=== PATIENT | male | born 1960 | race Caucasian/White ===

== ENCOUNTER 2019-10-22 13:13 | Emergency (ER) | payer OTHER, SELFPAY ==
[2019-10-22 13:22] VITALS: BP 130/87; PULSE 88; RESP 20; TEMP 36.8; O2SAT 95
--- NOTE | 2019-10-22 13:22 | ED.URI ---
HPI - URI/Sore Throat General Chief Complaint: Upper Respiratory Infection Stated Complaint: EARACHE/SINUS/THROAT Source: patient and RN notes reviewed Mode of arrival: ambulatory Limitations: no limitations History of Present Illness HPI Narrative: 58-year-old male presents concern for 1 week history of sinus congestion, headache, clogged ears, cough, right ear pain. Reports history of chronic sinusitis, sinus surgeries. MD elicited complaint: nasal congestion Related Data Home Medications Medication Instructions Recorded Confirmed chlorpheniramine-pseudoephed 1 tablet PO Q4-6H PRN 10/22/19 10/22/19 pseudoephedrine HCl [Sudafed 12 120 mg PO Q12H PRN 10/22/19 10/22/19 Hour] Allergies Allergy/AdvReac Type Severity Reaction Status Date / Time amoxicillin Allergy Unknown joint pain Verified 10/22/19 13:31 Review of Systems Review of Systems: Narrative: CONSTITUTIONAL: Reports malaise. Denies chills, sweats, or fever. EYES: Denies visual changes, redness, or discharge. ENT: Reports rhinorrhea, congestion, sinus pain, otalgia and sore throat. CARDIOVASCULAR: Denies chest pain, palpitations, or edema. RESPIRATORY: Reports cough. Denies dyspnea. GASTROINTESTINAL: Denies abdominal pain, nausea, vomiting, diarrhea SKIN: Denies rash or itching. MUSCULOSKELETAL: Denies myalgia. NEUROLOGIC: Reports headache. All systems reviewed & are unremarkable except as noted in HPI and below PMFSH Past Medical History Medical History (Updated 10/22/19 @ 13:46 by Fatmata Chen NP) Acute sinusitis Hyperparathyroidism Non-Hodgkin lymphoma in remission Sleep apnea with use of continuous positive airway pressure (CPAP) Surgical History Surgical History (Updated 09/08/19 @ 14:22 by Peng Castaneda MD) H/O parathyroidectomy H/O shoulder replacement right Hx of sinus surgery Status post left knee surgery Social History Social History Years smoked: 40 Smoking status: Current every day smoker Alcohol intake: current Drinks per week: 5 Substance use: never Substance use type: does not use Gender identity (if verbalized by the patient): Male Comments At time of signature, agree with nursing past medical, surgical, social and family history. There is no relevant family history pertinent to the presenting complaint Exam Narrative: Exam Narrative: GENERAL: Well-appearing, well-nourished, and in no acute distress. HEAD: Normocephalic EYES: PERRLA, conjunctivae clear ENT: Nares clear, turbinates edematous and erythematous, sinus tenderness. Mucous membranes moist. TM pearly yanez with dull light reflex bilaterally; no tragal tenderness. Oropharynx erythematous without lesions. Tonsils not enlarged and without exudate, no drooling, no hoarseness, no trismus, uvula midline. NECK: Supple. No lymphadenopathy CHEST: Clear to auscultation, breath sounds equal. No wheezing, rhonchi, rales, or stridor. No respiratory distress, speaks in full sentences. HEART: Regular rate and rhythm. No murmur heard. Normal peripheral pulses. SKIN: Warm, dry, no rash. NEURO: Alert and oriented x3. PSYCH: Normal mood and affect Course Course Emergency Course: Patient is aware of diagnosis, understands and agrees to treatment plan. Anticipatory guidance given. Patient agrees to follow-up as directed and is aware of reasons to seek care at the emergency department. Portions of this record may have been created with voice recognition software Vital Signs Vital signs: Vital Signs Temperature 98.2 F 10/22/19 13:22 Pulse Rate 88 10/22/19 13:22 Respiratory Rate 20 10/22/19 13:22 Blood Pressure 130/87 10/22/19 13:22 Pulse Oximetry 95 10/22/19 13:22 Temperature 98.2 F 10/22/19 13:22 Pulse Rate 88 10/22/19 13:22 Respiratory Rate 20 10/22/19 13:22 Blood Pressure 130/87 10/22/19 13:22 Pulse Oximetry 95 10/22/19 13:22 Reviewed. Pt has been instructed to foll
== END 2019-10-22 13:49 | disposition home or self-care (01) ==
PROVIDERS: Emergency Provider Nurse Practitioner; PCP Family Medicine
DX: J01.90 Acute sinusitis, unspecified (principal); F17.200 Nicotine dependence, unspecified, uncomplicated; G47.30 Sleep apnea, unspecified; Z85.72 Personal history of non-Hodgkin lymphomas; Z96.611 Presence of right artificial shoulder joint
CPT/HCPCS: 99213; G0463

== ENCOUNTER 2019-11-04 18:08 | Emergency (ER) | payer OTHER, SELFPAY ==
[2019-11-04 18:09] VITALS: BP 151/89; PULSE 107; RESP 18; TEMP 36.2; O2SAT 94
--- NOTE | 2019-11-04 19:28 | ED.EAR ---
HPI - Ear Problem General Chief complaint: Ear Stated complaint: earache Time Seen by Provider: 11/04/19 18:26 Source: patient Mode of arrival: ambulatory Limitations: no limitations History of Present Illness HPI Narrative: Patient presents with chief complaint of right ear pressure and pain that has worsened over the past 2 days. Patient states he has chronic sinus issues and just got over a bout of sinusitis for which she was on doxycycline which ended a week ago. Patient states he has had sinus issues chronically and takes decongestants, Nasacort, antihistamines. Patient states he has had sinus augmentation in the past. Patient states he has not followed up with ear nose throat specialist in many years. Patient denies any fever, chills, nausea, vomiting, diarrhea or any other symptoms Related Data Home Medications Medication Instructions Recorded Confirmed chlorpheniramine-pseudoephed 1 tablet PO Q4-6H PRN 10/22/19 10/22/19 pseudoephedrine HCl [Sudafed 12 120 mg PO Q12H PRN 10/22/19 10/22/19 Hour] Allergies Allergy/AdvReac Type Severity Reaction Status Date / Time amoxicillin Allergy Unknown joint pain Verified 11/04/19 18:22 Review of Systems Review of Systems: Narrative: CONSTITUTIONAL: Denies fever, chills, or sweats. EYES: Denies visual changes, redness, or discharge. ENT: Reports otalgia denies rhinorrhea, congestion, sore throat CARDIOVASCULAR: Denies chest pain, palpitations, or edema. RESPIRATORY: Denies cough or dyspnea. GASTROINTESTINAL: Denies abdominal pain, nausea, vomiting, or diarrhea. GENITOURINARY: Denies dysuria or hematuria. SKIN: Denies rash or itching. MUSCULOSKELETAL: Denies back pain, joint pain, or myalgia. NEUROLOGIC: Denies headache, numbness, dizziness, or weakness. PSYCHIATRIC: Denies anxiety or depression. [facility] Past Medical History Medical History (Updated 11/04/19 @ 19:35 by Se Anglin PA-C) Acute sinusitis Lilly Hussein virus positive mononucleosis syndrome Hyperparathyroidism Non-Hodgkin lymphoma in remission Sleep apnea with use of continuous positive airway pressure (CPAP) Surgical History Surgical History H/O parathyroidectomy H/O shoulder replacement right Hx of sinus surgery Status post left knee surgery Social History Social History Years smoked: 40 Smoking status: Current every day smoker Alcohol intake: current Drinks per week: 5 Substance use: never Substance use type: does not use Gender identity (if verbalized by the patient): Male Exam Narrative: Exam Narrative: GENERAL: Well-appearing, well-nourished, and in no acute distress. HEAD: Normocephalic, atraumatic. EYES: PERRLA and EOMI. ENT: Nares clear, no rhinorrhea or epistaxis. Mucous membranes moist. Oropharynx without tonsillar hypertrophy exudate or other lesions. Right TM bulging with fluid, there is injection and erythema. CHEST: Clear to auscultation. No respiratory distress. No wheezes rales or rhonchi HEART: Regular rate and rhythm. EXTREMITIES: Normal range of motion. No edema. SKIN: Warm, dry, no rash. NEURO: No focal deficits. Alert and oriented x3. PSYCH: Normal mood and affect. Course Vital Signs Vital signs: Vital Signs Temperature 97.2 F L 11/04/19 18:09 Pulse Rate 107 H 11/04/19 18:09 Respiratory Rate 18 11/04/19 18:09 Blood Pressure 151/89 H 11/04/19 18:09 Pulse Oximetry 94 11/04/19 18:09 Temperature 97.2 F L 11/04/19 18:09 Pulse Rate 107 H 11/04/19 18:09 Respiratory Rate 18 11/04/19 18:09 Blood Pressure 151/89 H 11/04/19 18:09 Pulse Oximetry 94 11/04/19 18:09 Medical Decision Making MDM Narrative Medical decision making narrative: Discussed with patient the need to follow-up with ENT specialist for further evaluation into recurrent sinus issues. Patient states that he just finished a course of doxycy
== END 2019-11-04 19:56 | disposition home or self-care (01) ==
PROVIDERS: Emergency Provider Emergency Medicine; PCP Family Medicine
DX: H66.91 Otitis media, unspecified, right ear (principal); E89.2 Postprocedural hypoparathyroidism; Z96.611 Presence of right artificial shoulder joint; Z85.72 Personal history of non-Hodgkin lymphomas; F17.200 Nicotine dependence, unspecified, uncomplicated
CPT/HCPCS: 99283

== ENCOUNTER 2021-07-26 20:34 | Emergency (ER) | payer OTHER, SELFPAY ==
--- NOTE | ~2021-07-26 | CT_ITS ---
EXAMINATION: CT brain wo con DATE: 07/27/2021 00:03 INDICATION: Head injury. TECHNIQUE: Computed tomography (CT) of the head was performed without intravenous contrast. The mA wa s adjusted according to patient size. Iterative reconstruction technique was employed. The dose-lengt h product was 605.33 mGy-cm. COMPARISON: Head CT 05/20/2011 FINDINGS: There are scattered areas of low attenuation in the cerebral white matter, which is within normal limits for the patient's age. There is no intracranial hemorrhage, acute infarction, or abnorm al intracranial mass lesion. The ventricles are normal in size. There is a left frontal scalp hematom a. There is a posterior scalp lipoma. There are changes of ethmoidectomies and uncinectomies. There i s mild mucosal thickening in the paranasal sinuses. The mastoid air cells are normal. The orbits are normal. IMPRESSION: 1. Normal aging brain. Reviewed, dictated and finalized at location A. [employer] IMPRESSION: 1. Normal aging brain.
[2021-07-26 21:16] VITALS: BP 149/98; PULSE 123; RESP 18; TEMP 36.7; O2SAT 93
[2021-07-26 23:54] VITALS: BP 169/93; PULSE 95; RESP 15; O2SAT 98
--- NOTE | 2021-07-26 23:55 | ED.WOUNDLAC ---
HPI - Wound/Laceration General Chief Complaint: Wound/Laceration Stated Complaint: head laceration Time Seen by Provider: 07/26/21 23:47 Source: RN notes reviewed History of Present Illness HPI narrative: Patient presents emergency department from home for head laceration. Patient states prior to arrival the incident of a cabinet when a crockpot fell approximately 2 feet and hit him in the left forehead he states he went down to the ground but did not lose consciousness he states that he has had pain in that area since that time with a laceration present. He is unsure of his last tetanus shot he denies any vision changes numbness or tingling in the extremities neck pain or any other symptoms Related Data Home Medications Medication Instructions Recorded Confirmed chlorpheniramine-pseudoephed 1 tablet PO Q4-6H PRN 10/22/19 10/22/19 pseudoephedrine HCl [Sudafed 12 120 mg PO Q12H PRN 10/22/19 10/22/19 Hour] Allergies Allergy/AdvReac Type Severity Reaction Status Date / Time amoxicillin Allergy Unknown joint pain Verified 07/26/21 23:56 Review of Systems Review of Systems: Gen.: Denies fevers or chills Eyes: Denies eye pain or visual change ENT: See HPI Respiratory: Denies shortness of breath CV: Denies chest pain GI: Denies abdominal pain nausea, emesis Musculoskeletal: Denies neck pain Neuro: Denies loss of consciousness Skin: See HPI Except as documented, all other systems reviewed and negative PMFSH Past Medical History Medical History Acute sinusitis Lilly Hussein virus positive mononucleosis syndrome Hyperparathyroidism Non-Hodgkin lymphoma in remission Sleep apnea with use of continuous positive airway pressure (CPAP) Surgical History Surgical History H/O parathyroidectomy H/O shoulder replacement right Hx of sinus surgery Status post left knee surgery Family History Family History Mother Asthma Social History Social History Years smoked: 40 Smoking status: Current every day smoker Alcohol intake: current Drinks per week: 5 Substance use: never Substance use type: does not use Gender identity (if verbalized by the patient): Male Exam Narrative: APPEARANCE: No acute distress, nontoxic, resting in bed EYES: EOMI, PERRL HEENT: Normocephalic, 2.5 cm over the left superior forehead with mild venous bleeding no foreign body seen, TMs clear bilaterally nares patent oral mucosa moist RESPIRATORY: No respiratory distress MUSCULOSKELETAl: Moves all extremities. No clubbing, cyanosis or edema. NEURO: Awake and alert x 4. Following commands, speech normal, no focal deficits SKIN:: Warm, dry. No rashes lesions or abrasions PSYCHIATRIC: Normal affect/mood, Course Course Emergency Course: Discussed with patient results of workup and diagnosis. Discussed need for follow-up with primary care, proper use of medication, and reasons to return to the emergency department. Patient understands and agrees to current treatment plan Vital Signs Vital signs: Vital Signs Temperature 98.1 F 07/26/21 21:16 Pulse Rate 123 H 07/26/21 21:16 Respiratory Rate 18 07/26/21 21:16 Blood Pressure 149/98 H 07/26/21 21:16 Pulse Oximetry 93 07/26/21 21:16 Temperature 98.1 F 07/26/21 21:16 Pulse Rate 95 07/26/21 23:54 Respiratory Rate 15 07/26/21 23:54 Blood Pressure 169/93 H 07/26/21 23:54 Pulse Oximetry 98 07/26/21 23:54 Procedures Laceration Laceration 1: ====== Skin Level ====== ====== Subcutaneous Layer ====== ====== Muscle Layer ====== ====== Tendon Layer ====== Dressin.5 cm forehead laceration: Verbal consent was obtained prior to the procedure. The wound was cleaned with Betadine and irrigated with co
[2021-07-27] MEDS: TETANUS,DIPHTHERIA,AC PERTUSSIS ADULT (0.5 ML) BOOSTRIX IM (00:44)
[2021-07-27 01:09] VITALS: BP 152/74; PULSE 65; RESP 15; O2SAT 99
== END 2021-07-27 01:10 | disposition home or self-care (01) ==
PROVIDERS: Emergency Provider Emergency Medicine; PCP Family Medicine
DX: S01.81XA Laceration without foreign body of other part of head, initial encounter (principal); Z23 Encounter for immunization; G47.30 Sleep apnea, unspecified; Z85.72 Personal history of non-Hodgkin lymphomas; E89.2 Postprocedural hypoparathyroidism; F17.210 Nicotine dependence, cigarettes, uncomplicated; Z96.611 Presence of right artificial shoulder joint; W20.8XXA Other cause of strike by thrown, projected or falling object, initial encounter
CPT/HCPCS: 12011; 70450; 90471; 90715; 99284

== ENCOUNTER 2023-01-23 08:45 | Emergency (ER) | payer OTHER, SELFPAY ==
[2023-01-23 08:50] VITALS: BP 137/99; PULSE 96; RESP 18; TEMP 36.2; O2SAT 99
--- NOTE | 2023-01-23 10:11 | ED.ALLEREA ---
HPI - Allergic Reaction General Chief complaint: Allergic Reaction Stated complaint: rash Time Seen by Provider: 01/23/23 10:03 History of Present Illness HPI narrative: 62-year-old male reports for evaluation of a diffuse rash to his legs, arms, chest and back that started yesterday. Patient states the rash is itchy and reports taking multiple doses of Benadryl, last dose was 50 mg 2 hours ago. States he started taking clindamycin 7 days ago for a sinus infection. He denies other new medications, lotions, detergents or other new exposures. Denies fever, oral lesions, nausea or vomiting. Denies difficulty breathing, mouth or lip swelling, chest pain or shortness of breath Related Data Allergies Allergy/AdvReac Type Severity Reaction Status Date / Time amoxicillin Allergy Unknown joint pain Verified 01/16/23 14:06 clindamycin Allergy Rash Verified 01/23/23 10:44 Review of Systems Review of Systems: CONSTITUTIONAL: Denies fever, chills EYES: Denies visual changes, redness, or discharge. ENT: Denies rhinorrhea, congestion, sore throat, or otalgia. CARDIOVASCULAR: Denies chest pain, palpitations, or edema. RESPIRATORY: Denies cough or dyspnea. GASTROINTESTINAL: Denies abdominal pain, nausea, vomiting, or diarrhea. GENITOURINARY: Denies dysuria or hematuria. SKIN: See HPI MUSCULOSKELETAL: Denies back pain, joint pain, or myalgia. NEUROLOGIC: Denies headache, numbness, dizziness, or weakness. PSYCHIATRIC: Denies anxiety or depression. [facility] Past Medical History Medical History Acute sinusitis Lilly Hussein virus positive mononucleosis syndrome Hyperparathyroidism Non-Hodgkin lymphoma in remission Sleep apnea with use of continuous positive airway pressure (CPAP) Wellness examination Surgical History Surgical History H/O parathyroidectomy H/O shoulder replacement right Hx of sinus surgery Status post left knee surgery Family History Family History Mother Asthma Social History Social History Years smoked: 40 Smoking status: Current every day smoker Alcohol intake: current Drinks per week: 5 Substance use: never Substance use type: does not use Gender identity (if verbalized by the patient): Male Exam Narrative: GENERAL: Well-appearing, in no acute distress. HEAD: Normocephalic ENT: No lip, mouth or throat swelling. No difficulty breathing. No drooling. NECK: Supple. CHEST: No respiratory distress. Clear to auscultation, no adventitious breath sounds. HEART: Regular rate and rhythm. No murmur heard. Normal peripheral pulses. ABDOMEN: Soft, nontender, normal active bowel sounds. EXTREMITIES: Normal range of motion. No edema. SKIN: Diffuse maculopapular rash to bilateral legs, abdomen, back and upper extremities. No drainage, bullae or vesicles, signs of infection. Negative Nikolsky's. No mucosal lesions. NEURO: No focal deficits. Alert and oriented x3. PSYCH: Normal mood and affect. Course Vital Signs Vital signs: Vital Signs Temperature 97.2 F L 01/23/23 08:50 Pulse Rate 96 01/23/23 08:50 Respiratory Rate 18 01/23/23 08:50 Blood Pressure 137/99 H 01/23/23 08:50 Pulse Oximetry 99 01/23/23 08:50 Oxygen Delivery Room Air 01/23/23 08:50 Temperature 97.2 F L 01/23/23 08:50 Pulse Rate 96 01/23/23 08:50 Respiratory Rate 18 01/23/23 08:50 Blood Pressure 137/99 H 01/23/23 08:50 Pulse Oximetry 99 01/23/23 08:50 Oxygen Delivery Room Air 01/23/23 08:50 MDM - Allergic Reaction MDM Narrative Medical decision making narrative: 62-year-old male reports for evaluation of a diffuse rash to his legs, arms, chest and back that started yesterday. Patient is currently taking clindamycin, started 7 days ago for sinusitis.
[2023-01-23] MEDS: FAMOTIDINE 20 MG TABLET PO (10:41)
== END 2023-01-23 10:45 | disposition home or self-care (01) ==
PROVIDERS: Emergency Provider Physician Assistant; PCP Family Medicine
DX: L27.0 Generalized skin eruption due to drugs and medicaments taken internally (principal); T36.8X5A Adverse effect of other systemic antibiotics, initial encounter; E89.2 Postprocedural hypoparathyroidism; G47.30 Sleep apnea, unspecified; Z96.611 Presence of right artificial shoulder joint; Z85.72 Personal history of non-Hodgkin lymphomas; F17.200 Nicotine dependence, unspecified, uncomplicated
CPT/HCPCS: 96372; 99283; A9270; J1100

== ENCOUNTER 2023-08-20 10:36 | Outpatient (CLI) | payer OTHER, SELFPAY ==
--- NOTE | ~2023-08-20 | CT_ITS ---
CT Scan of the Chest without Contrast: Clinical Indication: Lung cancer screening, current smoker Technique: Contiguous sections were acquired throughout the chest without intravenous contrast. Dose reduction technique was used on this scan by utilizing automated exposure control and iterative recon struction technique. The dose-length product (DLP) was 227.70 mGy-cm. Findings: There is a homogeneous anterior mediastinal/anterior left upper chest wall mass, at the superior left mediastinal region, measuring up to approximately 7.9 x 4.0 x 3.5 cm in extent (axial image 29 for gris jones, coronal image 48 for example). This is primarily just deep to the anterior left second rib There is no evidence of pleural or pericardial effusion. There is patchy groundglass opacity in the left lower lobe, suggestive of infectious process. No disc rete pulmonary nodule clearly identified. Images through the upper abdomen reveal no abnormalities. Impression: Lung RADS 4B: Highly suspicious. 7.9 x 4.0 x 3.5 cm homogeneous left upper chest wall/anterior medias tinal mass. Tissue sampling is recommended to establish a histologic diagnosis. Patchy groundglass opacity left lower lobe is most compatible with infectious process. Consider short -term follow-up CT to assure resolution. Findings reported to [facility];s staff at the time of this reading. Reviewed, dictated and finalized at location M. [employer] Impression: Lung RADS 4B: Highly suspicious. 7.9 x 4.0 x 3.5 cm homogeneous left upper ches t wall/anterior mediastinal mass. Tissue sampling is recommended to establish a histologic diagnosis. Patchy groundglass opacity left lower lobe is most compatible with infectious p rocess. Consider short-term follow-up CT to assure resolution. Findings reported to [facility] staff at the time of this reading.
== END 2023-08-20 10:37 | disposition home or self-care (01) ==
PROVIDERS: PCP Family Medicine; Visit Provider Physician Assistant
DX: Z12.2 Encounter for screening for malignant neoplasm of respiratory organs (principal); F17.210 Nicotine dependence, cigarettes, uncomplicated
CPT/HCPCS: 71271

== ENCOUNTER 2023-09-01 01:01 | Day surgery (SDC) | payer OTHER, SELFPAY ==
[2023-08-26 13:12] VITALS: BMI 28.4
--- NOTE | 2023-09-01 08:12 | P.PNAN_ITS ---
Anes - Initial Pre Proc Eval Procedure: Operation Date: 09/01/23 10:00 Proposed Procedures p Screening Colonoscopy - Masoud Reynoso MD Date/Time: 09/01/23 08:12 Surgeon: Masoud Reynoso MD Pre Op Diagnosis: neoplasm screening Patient Data Age: 62 Gender: M Height: 1.78 m Weight: 90 kg Allergies Allergy/AdvReac Type Severity Reaction Status Date / Time amoxicillin Allergy Unknown joint pain Verified 09/01/23 08:44 clindamycin Allergy Rash Verified 09/01/23 08:44 Home Medications Medication Instructions Recorded Confirmed Type amlodipine 5 mg tablet 5 mg PO DAILY #90 tabs 03/28/23 09/01/23 Rx Patient hx anesthesia problems: none Family hx anesthesia problems: none Results Review: All pre-operative results and documents have been reviewed as part of the pre- operative evaluation. [facility] Past Medical History Medical History (Updated 09/01/23 @ 08:13 by Jed Aguirre DO) Acute sinusitis Lilly Hussein virus positive mononucleosis syndrome HTN (hypertension) Hyperparathyroidism Non-Hodgkin lymphoma in remission Sleep apnea with use of continuous positive airway pressure (CPAP) Wellness examination Surgical History Surgical History H/O parathyroidectomy H/O shoulder replacement right Hx of sinus surgery Status post left knee surgery Family History Family History Mother Asthma Social History Social History Smoking packs per day: 0.5 Smoking cigarettes per day: 10.0 Years smoked: 45 Smoking pack-years: 22.50 Smoking status: Current every day smoker Tobacco type: cigarettes Alcohol intake: current Drinks per week: 3 Alcohol use details: OCC, BEER/RUM Substance use: never Substance use type: does not use Living arrangements: with family Gender identity (if verbalized by the patient): Male Spiritual care concerns: No Anes - Eval Final PreProcedure Day of Procedure 09/01/23 08:12 Patient weight: overweight Heart: regular rate and rhythm Lungs: clear to auscultation Airway: Mallampati scale class II Neurological: alert and oriented Last oral intake: >/= 8 hours ASA classification: III Emergent: no Anesthetic plan: proceed Anesthesia type and monitoring: general GIVS and standard monitoring Results Review: All pre-operative results and documents have been reviewed as part of the pre- operative evaluation. Informed Consent: The patient's anesthetic plan and its attendant risks and benefits were discussed with the patient/family/POA. Questions were solicited and answers provided to the satisfaction of the patient/family/POA.
[2023-09-01 08:45] VITALS: BP 131/82; PULSE 77; RESP 16; TEMP 36.2; O2SAT 96; BMI 29.7
[2023-09-01] MEDS: LACTATED RINGERS 1,000 ML 150 ML IV CONT (08:55)
--- NOTE | 2023-09-01 09:25 | PM.HPGS ---
History of Present Illness History of Present Illness Consent: Risks, benefits, and alternatives have been discussed and questions answered. Patient agrees to proceed with procedure. Chief complaint: neoplasm screening Narrative: Carlton Hernandez is a 62 year old male here for screening colonoscopy, last one 10 years ago Review of Systems Constitutional: Constitutional: Denies headache(s) and Denies weakness Eyes: Eyes: Denies blurry vision ENT: Reports Normal hearing present, Denies headache(s) and Denies neck pain Cardiovascular: Cardiovascular: Denies chest pain and Denies dyspnea Respiratory: Respiratory: Denies dyspnea Gastrointestinal: Gastrointestinal: Reports no additional gastrointestinal complaints Genitourinary: Genitourinary: Denies dysuria Musculoskeletal: Musculoskeletal: Denies neck pain Integumentary/Breasts: Skin/Breast: Denies dry skin Neurologic: Reports Normal hearing present, Denies headache(s) and Denies weakness Psychiatric: Psychiatric: Denies anxiety Endocrine: Endocrine: Denies change in body appearance Hematologic/Lymphatic: Hematologic/Lymphatic: Denies easy bleeding Allergic/Immunologic: Allergic/Immunologic: Denies urticaria PMFSH Past Medical History Medical History (Updated 09/01/23 @ 09:25 by Masoud Reynoso MD) Acute sinusitis Colon cancer screening Lilly Hussein virus positive mononucleosis syndrome HTN (hypertension) Hyperparathyroidism Non-Hodgkin lymphoma in remission Sleep apnea with use of continuous positive airway pressure (CPAP) Wellness examination Surgical History Surgical History H/O parathyroidectomy H/O shoulder replacement right Hx of sinus surgery Status post left knee surgery Family History Family History Mother Asthma Social History Social History Smoking packs per day: 0.5 Smoking cigarettes per day: 10.0 Years smoked: 45 Smoking pack-years: 22.50 Smoking status: Current every day smoker Tobacco type: cigarettes Alcohol intake: current Drinks per week: 3 Alcohol use details: OCC, BEER/RUM Substance use: never Substance use type: does not use Living arrangements: with family Gender identity (if verbalized by the patient): Male Spiritual care concerns: No Meds Home Medications and Allergies Home Medications Medication Instructions Recorded Confirmed Type amlodipine 5 mg tablet 5 mg PO DAILY #90 tabs 03/28/23 09/01/23 Rx Allergies Allergy/AdvReac Type Severity Reaction Status Date / Time amoxicillin Allergy Unknown joint pain Verified 09/01/23 08:44 clindamycin Allergy Rash Verified 09/01/23 08:44 Vital Signs Vital Signs - 24 hr 09/01/23 08:45 Temperature 97.1 F L Pulse Rate 77 Respiratory Rate 16 Blood Pressure 131/82 Pulse Oximetry 96 Oxygen Delivery Room Air Exam Const: General: comfortable and no acute distress HENMT: Face/Nose/Sinus: Normal nares present Eyes: General: appearance normal, both eyes and all related structures Neck: Neck: no JVD Resp: Auscultation: clear to auscultation bilaterally Cardio: Rate: regular rate Rhythm: regular rhythm GI: Inspection: non-distended GI Palp: Yes Soft to palpation Skin: General skin exam: normal color Neuro: General: gait normal Speech: normal speech Extrem: General: normal to inspection Psych: Mental Status: mental status grossly normal Assessment and Plan Assessment and plan (1) Colon cancer screening: Code(s): Z12.11 - Encounter for screening for malignant neoplasm of colon Status: Acute Assessment and Plan: colonoscopy
[2023-09-01 09:45] VITALS: BP 134/74; PULSE 63; RESP 27; O2SAT 96
[2023-09-01 09:55] VITALS: BP 116/81; PULSE 71; RESP 24; O2SAT 99
[2023-09-01 10:05] VITALS: BP 138/90; PULSE 65; RESP 27; O2SAT 97
== END 2023-09-01 10:11 | disposition home or self-care (01) ==
PROVIDERS: PCP Family Medicine; Visit Provider Internal Medicine Gastroenterology
PROC: 0DJD8ZZ Inspection of Lower Intestinal Tract, Via Natural or Artificial Opening Endoscopic (ICD-10-PCS; CPT 45378; principal; 2023-09-01 10:00)
DX: Z12.11 Encounter for screening for malignant neoplasm of colon (principal); D12.5 Benign neoplasm of sigmoid colon; D12.4 Benign neoplasm of descending colon; K64.8 Other hemorrhoids; K57.30 Diverticulosis of large intestine without perforation or abscess without bleeding; I10 Essential (primary) hypertension; E21.3 Hyperparathyroidism, unspecified; F17.210 Nicotine dependence, cigarettes, uncomplicated; G47.30 Sleep apnea, unspecified; Z99.89 Dependence on other enabling machines and devices; Z98.890 Other specified postprocedural states; Z85.72 Personal history of non-Hodgkin lymphomas
CPT/HCPCS: 45380; 45385; 88305; J2704; J7120

== ENCOUNTER 2023-09-12 06:17 | Outpatient (CLI) | payer OTHER, SELFPAY ==
[2023-09-09 15:28] VITALS: BMI 30.1
--- NOTE | 2023-09-09 15:29 | PC.NURSE ---
Pre Radiology instructions Report to the [facility] on date 09/12/23 at time 0930 for procedure Time: 1130. YOU MAY BE MONITORED AT HOSPITAL FOR UP TO 4 HOURS AFTER YOUR PROCEDURE. A visitor will be allowed to accompany the patient into the hospital. You and your visitor will be asked to self-screen and do not enter if you have any COVID symptoms. A mask is OPTIONAL within the hospital. Patients are to have no food or drink 6 hours prior to procedure time Driving will be restricted after the procedure, you must have a person to drive you home. Labs will be drawn in preop area and once reviewed, you will be taken to radiology area for procedure. When the procedure is completed, you will be taken to outpatient where you will be monitored for several hours. You may have one visitor in this area. Other than holding anti-coagulants, patient may take other medication(s) as scheduled. Prior to your appointment date patients are instructed to hold anti-coagulants after discussing with ordering provider to stop. If unable to discontinue anti-coagulants please notify radiologist. ? No aspirin or warfarin (Coumadin) for 7 days prior to the procedure. ? No clopidogrel (Plavix), ticagrelor (Brilinta), prasugrel (Effient) or dabigatran (Pradaxa) for 5 days prior to the procedure. ? No rivaroxaban (Xarelto), apixaban (Eliquis), dipyridamole (Aggrenox or Persantine) or cilostazol (Pletal) for 2 days prior to the procedure. Medications to discontinue per physician: N/A Date to take last dose: N/A Please leave all valuables, including medications, at home the day of procedure. The hospital will not accept responsibility for valuables. Wear comfortable, loose fitting clothing.? Follow any additional instructions given to you from ordering provider. Telephone instructions given to DERECK PAULINO and asked if any additional questions and then verbalized understanding. Patient advised to call scheduling provider office or registration scheduling [phone] if any additional questions.
[2023-09-12] VITALS (9 sets, daily range): BP systolic 131–145; BP diastolic 82–91; PULSE 60–82; RESP 12–18; TEMP 36.7; O2SAT 95–98
--- NOTE | ~2023-09-12 | XR_ITS ---
XR chest 1V portable 09/12/2023 12:46 Indication: Post image guided biopsy. Procedure: AP upright view of the chest Comparison: 09/12/2023 Findings: No pneumothorax identified post procedure. Persistent masslike density left apex, suspiciou s for neoplasm. Right lung clear. Heart size normal. Impression: 1: No pneumothorax identified. Reviewed, dictated and finalized at location B. OR CLINICAL STUDY MANAGER Impression: 1: No pneumothorax identified.
--- NOTE | ~2023-09-12 | XR_ITS ---
XR chest 1V 09/12/2023 11:46 Indication: Postleft lung biopsy Procedure: AP view of the chest Comparison: CT dated 08/20/2023 Findings: There is a masslike density left apex, suspicious for neoplasm. Heart size normal. No pneum othorax identified. Right lung clear. No pleural effusion or pneumothorax. Impression: 1: No pneumothorax identified post procedure. 2: Masslike density left apex, suspicious for neoplasm. Reviewed, dictated and finalized at location B. OMER SUPPLY COORDINATOR Impression: 1: No pneumothorax identified post procedure. 2: Masslike density left apex, suspicious for neoplasm.
--- NOTE | ~2023-09-12 | CT_ITS ---
EXAMINATION: CT biopsy lung w/imaging DATE: 09/12/2023 11:46 INDICATION: Mass at the left upper lobe/anterior mediastinum. TECHNIQUE: The procedure including the risks and benefits was discussed with the patient. Risks discu ssed included infection, approximately 1/20 risk of symptomatic hemorrhage beyond mild hemoptysis, ap proximately 1/3 risk of pneumothorax, and approximately 1/10 risk of pneumothorax severe enough to wa rrant chest tube placement. The patient understood the risks and agreed to proceed. The patient was p laced supine. The skin overlying the parasternal left upper chest was prepped and draped in sterile fashion. Anesthetic was administered with 1% lidocaine subcutaneously. A 19 gauge outer needle was advanced under CT guidance to the lesion of interest. A 20 gauge core biopsy needle was then used to obtain 5 core biopsy specimens. The needle was removed and the entry site was cleaned and dressed. T here were no immediate complications. The dose-length product was 117.64 mGy-cm. FINDINGS: CT images demonstrate the outer needle tip adjacent to a 7 x 5 cm mass at the junction of t he left upper lobe and anterior mediastinum and chest wall. IMPRESSION: 1. Successful CT-guided biopsy of a 7 x 5 cm mass at the junction of the left upper lobe, anterior me diastinum and chest wall. Reviewed, dictated and finalized at location A. LOPER TRADING SYSTEMS IMPRESSION: 1. Successful CT-guided biopsy of a 7 x 5 cm mass at the junction of the left u pper lobe, anterior mediastinum and chest wall.
--- NOTE | ~2023-09-12 | XR_ITS ---
EXAMINATION: XR chest 1V portable DATE: 09/12/2023 14:46 INDICATION: Status post percutaneous left lung biopsy TECHNIQUE: frontal view of the chest was obtained. COMPARISON: Chest radiograph dated 09/12/2023 FINDINGS: Again seen is an airspace opacity medial left upper lung zone corresponding to the biopsied mediastin al/paramediastinal mass of concern. No other airspace opacities, pulmonary edema, pleural effusion or pneumothorax. The cardiomediastinal silhouette is normal. Partially visualized right total shoulder arthroplasty. IMPRESSION: 1. No pneumothorax or other acute cardiopulmonary disease post percutaneous biopsy of a left external /paramediastinal mass. Reviewed, dictated and finalized at location A. R TREATMENT PLANT OPERATOR IMPRESSION: 1. No pneumothorax or other acute cardiopulmonary disease post percutaneous bio psy of a left external/paramediastinal mass.
[2023-09-12 10:40] LABS: Mean Platelet Volume 8.8 fl (7.4-10.4); Platelet Count Result 237 k/mm3 (150-375)
[2023-09-12 10:50] LABS: Prothrombin Time 13.2 Seconds (11.1-14.7)
--- NOTE | 2023-09-12 13:08 | SUR.PHASEII ---
1245 PORTABLE CXR DONE.
--- NOTE | 2023-09-12 14:52 | SUR.PHASEII ---
1445 PORTABLE CXR DONE.
--- NOTE | 2023-09-12 15:29 | SUR.PHASEII ---
DR. ARMENDARIZ HERE TO SEE PT.
== END 2023-09-12 15:31 | disposition home or self-care (01) ==
PROVIDERS: PCP Family Medicine; Referring Provider Physician Assistant; Visit Provider Radiology Diagnostic Radiology
PROC: BB24ZZZ Computerized Tomography (CT Scan) of Bilateral Lungs (ICD-10-PCS; CPT 32408; principal; 2023-09-12 11:30)
DX: Z01.818 Encounter for other preprocedural examination (principal); R91.8 Other nonspecific abnormal finding of lung field
CPT/HCPCS: 32408; 36415; 71045; 85049; 85610; 88305; 88341; 88342

== ENCOUNTER 2024-08-04 09:50 | Outpatient (CLI) | payer OTHER, SELFPAY ==
[2024-08-04 11:19] LABS: Influenza A QL RT-PCR Negative (Negative); Influenza B QL RT-PCR Negative (Negative); RSV RNA, RT-PCR Negative (Negative); SARS-CoV-2 RNA PCR Negative (Negative)
== END 2024-08-04 09:51 | disposition home or self-care (01) ==
LOC: ANHLAB 09:52
PROVIDERS: PCP Family Medicine; Visit Provider Physician Assistant Medical
DX: R05.9 Cough, unspecified (principal); Z20.822 Contact with and (suspected) exposure to COVID-19
CPT/HCPCS: 87637

== ENCOUNTER 2024-08-05 18:42 | Inpatient (IN) | payer OTHER, SELFPAY ==
[2024-08-05] VITALS (11 sets, daily range): BP systolic 134–143; BP diastolic 81–85; PULSE 75–93; RESP 16–25; TEMP 36.6–37.1; O2SAT 91–95
--- NOTE | ~2024-08-05 | XR_ITS ---
EXAMINATION: XR chest 1V portable DATE: 08/05/2024 20:45 INDICATION: Shortness of breath. Cough. Fever. TECHNIQUE: A single frontal view of the chest was obtained on 2 radiographs. COMPARISON: Chest single view 09/12/2023, chest CT 08/20/2023 FINDINGS: There is no pneumonia, pleural effusion, or pneumothorax. The heart size is normal. There i s a right shoulder arthroplasty. IMPRESSION: 1. No acute cardiopulmonary disease. Reviewed, dictated and finalized at location A. ALLERGY IMMUNOLOGY
--- NOTE | ~2024-08-05 | CT_ITS ---
EXAMINATION:CT diagnostic chest wo con DATE: 08/05/2024 21:29 INDICATION: Hypoxia. TECHNIQUE: Computed tomography (CT) of the chest was performed without intravenous contrast. Automate d exposure control and iterative reconstruction technique were employed. The dose-length product (DLP ) was 359.14 mGy-cm. COMPARISON: Chest CT 08/20/2023 FINDINGS: There is mild atelectasis in left lower lobe. There is mild bronchiectasis in the inferior lungs. There are tree-in-bud opacities in left upper lobe and left lower lobe. No pleural effusion. T here is a 6.6 x 2.8 cm mass in the anterior mediastinum on the left, decreased from 9.5 x 4.0 cm on . The heart size is normal. No pericardial effusion. There is mild bilateral gynecomastia. The re is diffuse hepatic steatosis. There is a total right shoulder arthroplasty. There is mild thoracic spondylosis. IMPRESSION: 1. Tree-in-bud opacities in left upper lobe and left lower lobe, consistent with mild pneumonia. 2. Anterior mediastinal mass on the left with improvement from 08/20/2023, consistent with lymphoma. Reviewed, dictated and finalized at location A. CETYLENE TORCH OPERATOR IMPRESSION: 1. Tree-in-bud opacities in left upper lobe and left lower lobe, consistent wit h mild pneumonia. 2. Anterior mediastinal mass on the left with improvement from 08/20/2023, consis tent with lymphoma.
--- NOTE | 2024-08-05 19:39 | ECG_ITS ---
Test Date: 2024-08-05 19:49:51 Measurements Intervals [place] Rate: 77 P: 26 RI: 204 QRS: -37 QRSD: 104 T: 41 QT: 393 QTc: 446 Interpretive Statements SINUS RHYTHM LEFT AXIS DEVIATION [QRS AXIS < -30] No previous ECG available for comparison Electronically Signed On 08-06-2024 12:09:26 BORDEREAU CLERK by Amaya Dong M.D.
[2024-08-05 20:10] LABS: Basophils Absolute Auto 0.1 K/mm3 (0.0-0.1); Basophils Percent Auto 1.3 % (0.2-1.2); Eosinophils Absolute Auto 0.2 K/mm3 (0-0.3); Eosinophils Percent Auto 2.8 % (0-4.4); Hematocrit 42.6 % (42.0-52.0); Hemoglobin 15.3 g/dL (14.0-18.0); Immature Granulocyte Absolute 0.02 K/mm3 (0.00-0.031); Immature Granulocyte Percent A 0.4 % (0-0.5); Lymphocytes Absolute Auto 0.58 K/mm3 (0.9-3.2); Lymphocytes Percent Auto 10.8 % (18.3-44.2); Mean Corpuscular HGB Conc 35.9 g/dl (32-36); Mean Corpuscular Volume 94.7 fl (80-100); Mean Platelet Volume 8.7 fl (7.4-10.4); Monocytes Absolute Auto 0.8 K/mm3 (0.1-0.6); Neutrophils Absolute Auto 3.8 K/mm3 (1.3-6.7); Neutrophils Percent Auto 70.7 % (45.5-73.1); Platelet Count Result 187 k/mm3 (150-375); Red Cell Distribution Width 12.8 % (11.5-14.5); White Blood Count 5.4 K/mm3 (4.5-10.0)
[2024-08-05] MEDS: IPRATROPIUM 0.5 MG/ALBUTEROL SULFATE 2.5 MG AMPUL.NEB 3 ML 12 ML INHALATION (20:17)
[2024-08-05 20:20] LABS: Alanine Aminotransferase 42 U/L (6-50); Albumin Level 4.5 g/dL (3.5-5.1); Alkaline Phosphatase 61 U/L (38-126); Anion Gap 7 mmol/L (4-12); Aspartate Amino Transferase 32 U/L (17-59); Bilirubin,Total 0.7 mg/dL (0.2-1.3); Blood Urea Nitrogen 9 mg/dL (9-20); Calcium 8.9 mg/dL (8.4-10.2); Carbon Dioxide 25 mmol/L (22-30); Chloride 104 mmol/L (98-107); Estimated CRCL calculation 110 ml/min; Estimated Glomerular Filt Rate > 60; Glucose 94 mg/dL (65-110); Potassium 3.5 mmol/L (3.4-5.0); Sodium 136 mmol/L (137-145)
--- NOTE | 2024-08-05 20:29 | ED.GENADULT ---
HPI - General Adult General Chief complaint: Shortness of Breath/Dyspnea Stated complaint: cough Time Seen by Provider: 08/05/24 19:51 History of Present Illness HPI narrative: This is a 63 year presenting ED with chief shortness of breath. Patient has had a cough for the last 3 days. He saw his care physician who chest in for COVID RSV and flu which were all negative. He was prescribed Tessalon Perles and given return precautions worsening condition. His condition has continued to worsen. He is now having significant coughing fits. He is denying fevers chills nausea vomiting or diarrhea. patient coughed so hard he thought that he was going to faint. Related Data Allergies Allergy/AdvReac Type Severity Reaction Status Date / Time amoxicillin Allergy Unknown joint pain Verified 08/05/24 21:55 clindamycin Allergy Rash Verified 08/05/24 21:55 cockroach Allergy Unknown Verified 08/05/24 21:55 PMFSH Past Medical History Medical History Colon cancer screening Wellness examination HTN (hypertension) Lilly Hussein virus positive mononucleosis syndrome Acute sinusitis Sleep apnea with use of continuous positive airway pressure (CPAP) Hyperparathyroidism Non-Hodgkin lymphoma in remission Surgical History Surgical History Status post left knee surgery H/O shoulder replacement right H/O parathyroidectomy Hx of sinus surgery Family History Family History Mother Asthma Social History Social History Social History: Smoking packs per day: 0.25 Smoking cigarettes per day: 5.0 Years smoked: 45 Smoking pack-years: 11.25 Smoking status: Current every day smoker Tobacco type: cigarettes Alcohol intake: current Drinks per week: 5 Alcohol use details: OCC, BEER/RUM Substance use: never Substance use type: does not use Do You Feel Safe in your Home?: Yes Lack of Transportation: No Lack of Food: Never True Current Housing: I Have Housing Concerned About Future Housing: No Difficulty Paying Gas/Electric Bills: No Difficulty Paying for Meds: No Currently Unemployed: YES Education: Don't Know Difficulty w/ Childcare or Family Care: No Living arrangements: with family Occupation/Education: retired Gender identity (if verbalized by the patient): Male Sexual Orientation (if Verbalized by the Patient): Straight or Heterosexual Spiritual care concerns: No Exam Narrative: APPEARANCE: No apparent distress. Head: atraumatic. EYES: EOMI, NOSE: Atraumatic NECK: Trachea midline RESPIRATORY: Tachypneic, hypoxic on room air, scattered wheezing CARDIOVASCULAR: RRR, no peripheral edema ABDOMINAL: Non-distended soft nontender MUSCULOSKELETAl: No obvious deformities NEURO: Alert. Moving 4/4 extremities SKIN:: Warm, dry. Normal color PSYCHIATRIC: Normal affect Course Vital Signs Vital signs: Vital Signs Temperature 97.9 F 08/05/24 18:44 Pulse Rate 93 08/05/24 18:44 Respiratory Rate 18 08/05/24 18:44 Blood Pressure 134/81 08/05/24 18:44 Pulse Oximetry 94 08/05/24 18:44 Oxygen Delivery Room Air 08/05/24 18:44 Temperature 98.7 F 08/05/24 21:51 Pulse Rate 90 08/05/24 21:51 Respiratory Rate 22 H 08/05/24 21:51 Blood Pressure 137/85 08/05/24 21:51 Pulse Oximetry 94 08/05/24 22:04 Oxygen Delivery Nasal Cannula 08/05/24 22:04 Oxygen Flow Rate 4 08/05/24 22:04 Medical Decision Making [facility] Narrative Medical decision making narrative: -Course: 63-year-old male presenting with cough. Found to be hypoxic in the high 80s and wheezing on arrival. Placed on 2 L with improvement into the mid 90s. Chest x-ray is clear but high suspicion for pneumonia. CT non-con showed PNA. patient started ceftriaxone and azithromycin. Patient be admitted hospital for pneumonia and hypoxic respiratory failure. -DDX includes but is not limited to: Pneumonia, bronchitis, viral syndrome pulmonary embolism, D-dimer -Co-morbidities complicating care: lymphoma, HTN, HL -Independent interpretation of studies: labs and imaging reviewed Independent EKG interpretation: Rhythm [sinus], Rate [77], [place] -[normal], [place] -[normal], QRS [narrow], QTC [446], T waves -[negative for concerning inversions], ST Segments - [Negative for concerning elevations] Final interpretations: [Normal Sinus Rhythm] D-dimer BNP and troponin negative. Viral swabs negative -Discussion of Management/Consultants: R[place]i -Interventions: ceftriaxone, azithromycin, breathing treatment, -Shared decision making / Disposition: admitted Vital Signs Vital Signs: Vital Signs Temperature 97.9 F 08/05/24 18:44 Pulse Rate 93 08/05/24 18:44 Respiratory Rate 18 08/05/24 18:44 Blood Pressure 134/81 08/05/24 18:44 Pulse Oximetry 94 08/05/24 18:44 Oxygen Delivery Room Air 08/05/24 18:44 Temperature 98.7 F 08/05/24 21:51 Pulse Rate 90 08/05/24 21:51 Respiratory Rate 22 H 08/05/24 21:51 Blood Pressure 137/85 08/05/24 21:51 Pulse Oximetry 94 08/05/24 22:04 Oxygen Delivery Nasal Cannula 08/05/24 22:04 Oxygen Flow Rate 4 08/05/24 22:04 Lab Data 08/05/24 20:01 08/05/24 20:02 Labs: Lab Results 08/05/24 08/05/24 08/05/24 Range/Units 20:01 20:02 22:59 WBC 5.4 (4.5-10.0) K/mm3 RBC 4.50 L (4.6-6.20) M/mm3 Hgb 15.3 (14.0-18.0) g/dL Hct 42.6 (42.0-52.0) % MCV 94.7 (80-100) fl MCH 34.0 (26-34) pg MCHC 35.9 (32-36) g/dl RDW 12.8 (11.5-14.5) % Plt Count 187 (150-375) k/mm3 MPV 8.7 (7.4-10.4) fl Immature Gran % (Auto) 0.4 (0-0.5) % Neut % (Auto) 70.7 (45.5-73.1) % Lymph % (Auto) 10.8 L (18.3-44.2) % Grant % (Auto) 14.0 H (2.6-8.5) % Eos % (Auto) 2.8 (0-4.4) % Baso % (Auto) 1.3 H (0.2-1.2) % Lymph # (Auto) 0.58 L (0.9-3.2) K/mm3 Grant # (Auto) 0.8 H (0.1-0.6) K/mm3 Eos # (Auto) 0.2 (0-0.3) K/mm3 Baso # (Auto) 0.1 (0.0-0.1) K/mm3 Abs Immat Gran (auto) 0.02 (0.00-0.031) K/mm3 Absolute Neuts (auto) 3.8 (1.3-6.7) K/mm3 Absolute Nucleated RBC 0.000 (0.0-0.012) K/mm3 Nucleated RBC % 0.0 (0.0-0.2) % D-Dimer < 0.27 (<0.48) ug/mL Sodium Cancelled 136 L Potassium Cancelled 3.5 Chloride Cancelled 104 Carbon Dioxide Cancelled 25 Anion Gap Cancelled 7 BUN Cancelled 9 Creatinine Cancelled 0.70 Estim Creat Clear Calc Cancelled 110 Estimated GFR Cancelled > 60 Glucose Cancelled 94 Calcium Cancelled 8.9 Total Bilirubin Cancelled 0.7 AST Cancelled 32 ALT Cancelled 42 Alkaline Phosphatase Cancelled 61 Troponin I < 0.012 < 0.012 (0.000-0.034) ng/mL NT-Pro-B Natriuret Pep 21 (19.9-100) pg/mL Total Protein Cancelled 7.0 Albumin Cancelled 4.5 Urine Color (Yellow) Urine Appearance (Clear) Urine pH (5.0-9.0) Ur Specific [place] (1.001-1.035) Urine Protein (Negative) mg/dL Urine Glucose (UA) (Negative) mg/dL Urine Ketones (Negative) mg/dL Ur Blood (Man) (Negative) Urine Nitrate (Negative) Urine Bilirubin (Negative) Urine Urobilinogen (<2.0) mg/dL Leukocyte Esterase Rfl (Negative) EDGAR/UL Influenza A (RT-PCR) Negative (Negative) Influenza B (RT-PCR) Negative (Negative) RSV (RT-PCR) Negative (Negative) SARS-CoV-2 RNA (RT-PCR) Negative (Negative) 08/05/24 Range/Units 23:10 WBC (4.5-10.0) K/mm3 RBC (4.6-6.20) M/mm3 Hgb (14.0-18.0) g/dL Hct (42.0-52.0) % MCV (80-100) fl MCH (26-34) pg MCHC (32-36) g/dl RDW (11.5-14.5) % Plt Count (150-375) k/mm3 MPV (7.4-10.4) fl Immature Gran % (Auto) (0-0.5) % Neut % (Auto) (45.5-73.1) % Lymph % (Auto) (18.3-44.2) % [place] % (Auto) (2.6-8.5) % Eos % (Auto) (0-4.4) % Baso % (Auto) (0.2-1.2) % Lymph # (Auto) (0.9-3.2) K/mm3 [place] # (Auto) (0.1-0.6) K/mm3 Eos # (Auto) (0-0.3) K/mm3 Baso # (Auto) (0.0-0.1) K/mm3 Abs Immat Gran (auto) (0.00-0.031) K/mm3 Absolute Neuts (auto) (1.3-6.7) K/mm3 Absolute Nucleated RBC (0.0-0.012) K/mm3 Nucleated RBC % (0.0-0.2) % D-Dimer (<0.48) ug/mL Sodium Potassium Chloride Carbon Dioxide Anion Gap BUN Creatinine Estim Creat Clear Calc Estimated GFR Glucose Calcium Total Bilirubin AST ALT Alkaline Phosphatase Troponin I (0.000-0.034) ng/mL NT-Pro-B Natriuret Pep (19.9-100) pg/mL Total Protein Albumin Urine Color Yellow (Yellow) Urine Appearance Clear (Clear) Urine pH 6.5 (5.0-9.0) Ur Specific [place] 1.018 (1.001-1.035) Urine Protein Negative (Negative) mg/dL Urine Glucose (UA) Negative (Negative) mg/dL Urine Ketones Trace H (Negative) mg/dL Ur Blood (Man) Negative (Negative) Urine Nitrate Negative (Negative) Urine Bilirubin Negative (Negative) Urine Urobilinogen 1.0 (<2.0) mg/dL Leukocyte Esterase Rfl Negative (Negative) EDGAR/UL Influenza A (RT-PCR) (Negative) Influenza B (RT-PCR) (Negative) RSV (RT-PCR) (Negative) SARS-CoV-2 RNA (RT-PCR) (Negative) ABG Data ABG results: 08/05/24 20:16 Puncture Site Right brachial ABG pH 7.448 ABG pCO2 37.8 ABG pO2 59.0 L ABG PO2/FiO2 Ratio 1.84 ABG HCO3 25.6 ABG O2 Saturation 91.8 L ABG O2 Content 19.9 ABG Base Excess 1.7 A-a Gradient 124.9 Oxyhemoglobin 89.9 L Total Hemoglobin 15.8 O2 Delivery Device Nasal cannula O2 Liters/Min 3.0 FiO2 32 Critical Care Time Critical Care Time Critical Care Time: Yes Total Critical Care Time: 35 Discharge Plan Discharge Clinical Impression: Acute hypoxic respiratory failure, Pneumonia Patient Disposition: Still a Patient Condition: Stable Patient Language: Moroccan Prescriptions: No Action benzonatate 200 mg capsule 200 mg PO TID PRN (Reason: cough) Qty: 30 0RF atorvastatin 10 mg tablet 10 mg PO DAILY Qty: 90 1RF amlodipine 5 mg tablet 5 mg PO DAILY Qty: 90 1RF Follow-up/Referrals: Peng Castaneda MD [Primary Care Provider] -
[2024-08-05 20:33] LABS: Alveolar/Arterial O2 Gradient 124.9 mmHg; Base Excess ABG 1.7 mEq/l (+/-2.0); Fractional Inspired Oxygen 32 %; HCO3 ABG 25.6 mEq/l (22.0-26.0); Oxygen Content ABG 19.9 %vol (16.0-22.0); Oxygen Saturation ABG 91.8 % (95.0-100.0); Oxyhemoglobin 89.9 % THb (90.0-100.0); PCO2 ABG 37.8 mmHg (35.0-45.0); PO2 FiO2 Ratio Arterial Blood 1.84 %; Total Hemoglobin 15.8 g/dL (12.0-18.0); pH ABG 7.448 (7.350-7.450)
[2024-08-05 20:34] LABS: Device NASAL CANNULA; Site Drawn RIGHT BRACHIAL
[2024-08-05 20:34] LABS: NT Pro B Type Natriuretic Pept 21 pg/mL (19.9-100); Troponin I < 0.012 ng/mL (0.000-0.034)
[2024-08-05 20:40] LABS: D Dimer < 0.27 ug/mL (<0.48)
[2024-08-05 20:46] LABS: Influenza A QL RT-PCR Negative (Negative); Influenza B QL RT-PCR Negative (Negative); RSV RNA, RT-PCR Negative (Negative); SARS-CoV-2 RNA PCR Negative (Negative)
[2024-08-05] MEDS: AZITHROMYCIN 500 MG/NS 250 ML 500 MG/250 ML BAG 250 MG IVPB (22:17)
--- NOTE | 2024-08-05 22:45 | ECG_ITS ---
Test Date: 2024-08-05 23:02:06 Measurements Intervals [place] Rate: 84 P: 34 TX: 212 QRS: -39 QRSD: 104 T: 47 QT: 367 QTc: 434 Interpretive Statements SINUS RHYTHM MARKED LEFT AXIS DEVIATION [QRS AXIS < -30] Compared to ECG 08/05/2024 19:49:51 NO SIGNIFICANT CHANGES Electronically Signed On 08-06-2024 12:12:16 INSTRUMENTATION TECHNICIAN by Amaya Dong M.D.
[2024-08-05] MEDS: SODIUM CHLORIDE 0.9% IV 1,000 ML 999 ML IV CONT (23:15)
[2024-08-05 23:17] LABS: Add Urine Microscopic? NO; Appearance Urine Clear (Clear); Bilirubin Urine Negative (Negative); Blood Urine Negative (Negative); Color Urine Yellow (Yellow); Glucose Urine UA Negative (Negative); Ketones Urine Trace mg/dL (Negative); Leukocyte Esterase Ur Negative LEU/UL (Negative); Nitrate Urine Negative (Negative); Protein Urine Negative (Negative); Specific Grav Ur 1.018 (1.001-1.035); pH Urine 6.5 (5.0-9.0)
[2024-08-05 23:54] LABS: Troponin I < 0.012 ng/mL (0.000-0.034)
[2024-08-06] VITALS (13 sets, daily range): BP systolic 134–161; BP diastolic 71–85; PULSE 9–91; RESP 16–27; TEMP 36.3–37.2; O2SAT 90–93; BMI 30.9
[2024-08-06] MEDS: LACTATED RINGERS 1,000 ML 75 ML IV CONT (00:23)
--- NOTE | 2024-08-06 00:41 | PC.NURSE ---
This nurse just now notified of patient has an inpatient bed.
--- NOTE | 2024-08-06 01:27 | ADMGEN ---
This patient, Carlton Hernandez, was admitted to 3 Med Surg Room 331-01 at 0100. Patient/family oriented to hospital policies and general routines including ID bracelet, bed and alarms, visiting hours, pain management, procedures, bathroom and other care routines, personal items, smoking policy, room service/diet, and visiting hours. Information on how to activate the Rapid Response Team has been discussed. Patient/Family are encouraged to report perceived risks to care and to ask questions if they do not understand what they are told or what they should do.
--- NOTE | 2024-08-06 02:46 | P.HP_ITS ---
H&P: HPI History of Present Illness Date/Time: 08/06/24 02:46 Chief Complaint: URI symptoms Narrative: 63-year-old male past medical history of essential hypertension, hyperlipidemia, obstructive sleep apnea and B-cell lymphoma who presented to the ER with cough and shortness of breath. The patient reports he went to his primary care physician yesterday to be evaluated for upper respiratory symptoms that have been ongoing for 3 days. He reported 3 days ago he started having shortness of breath only when he would lay down. It was accompanied by cough that it gradually worsened. He was coughing to the point that he became severely lightheaded and had to kneel down to the ground to stop from passing out. He was noted to be wheezing and had significant crackles at the time of my evaluation. He reported that he has smoked since he was a teenager but has never been diagnosed with COPD. He denies any chills, nausea, vomiting or diarrhea. He has had a slight decrease in appetite. He denies any known recent ill contacts. He Underwent targeted radiation therapy for mediastinal mass associated with B- cell lymphoma and was treated with chemotherapy back in 2004. He had a recurrence of the B-cell lymphoma in September and has received 2 treatments with radiation therapy back in September. He subsequently had sequential PET scans which showed increased uptake of the mass and he is scheduled to start chemotherapy again on August 12. His malignancy is managed at [facility]. The patient reports that in the distant past after he received chemotherapy he did have to have some immunoglobulin infusions but that was almost 20 years ago. Review of Systems 2 Review of Systems: 12 systems were reviewed with pertinent positives and negatives per HPI. Except as documented in the HPI, all other systems were reviewed and are negative. [facility] Past Medical History Medical History (Updated 08/06/24 @ 22:00 by Linda Diane, DO) Erectile dysfunction HTN (hypertension) Acute sinusitis Sleep apnea with use of continuous positive airway pressure (CPAP) Hyperparathyroidism Non-Hodgkin lymphoma in remission B-cell lymphoma initially diagnosed in 2004 and treated with 2.5 years of chemotherapy and some radiation therapy. He had a recurrence of the lymphoma September 2023 and underwent 2 radiation therapy treatments. His most recent PET scan still demonstrated increased activity of the mass in the left mediastinum and he is supposed to start chemotherapy on August 12. Surgical History Surgical History (Updated 12/20/24 @ 08:39 by Linda Diane DO) Status post left knee surgery ORIF of the patella followed several years later by arthroscopic debridement H/O shoulder replacement right H/O parathyroidectomy Hx of sinus surgery Family History Family History Mother Asthma Social History Social History (Updated 08/06/24 @ 08:42 by Linda Diane DO) Social History: He lives at home with his Jacqueline. They have been for 28 years. They have 2 sons and a daughter. Their children are 22, 19 and 17 years old respectively. He was a new work [employer] for 5 years in [employer] so he decided to join the . He was in the [employer] for 20 years. 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 He used to smoke up to 3 packs of cigarettes per day for few years but then cut down to less than a pack of cigarettes per day and has continued to smoke since then but is currently back down to a quarter pack of cigarettes per day. He drinks about 5 alcoholic beverages a week. He denies illicit substance use. Code Status: Full code Surrogate decision maker: Jacqueline () Smoking packs per day: 0.25 Smoking cigarettes per day: 5.0 Years smoked: 45 Smoking pack-years: 11.25 Smoking status: Current every day smoker Tobacco type: cigarettes Alcohol intake: current Drinks per week: 5 Alcohol use details: OCC, BEER/RUM Substance use: never Substance use type: does not use Do You Feel Safe in your Home?: Yes Lack of Transportation: No Lack of Food: Never True Current Housing: I Have Housing Concerned About Future Housing: No Difficulty Paying Gas/Electric Bills: No Difficulty Paying for Meds: No Currently Unemployed: YES Education: Master's Degree or Higher Difficulty w/ Childcare or Family Care: No Living arrangements: with family Occupation/Education: retired Gender identity (if verbalized by the patient): Male Sexual Orientation (if Verbalized by the Patient): Straight or Heterosexual Spiritual care concerns: No Meds Home Medications and Allergies Home Medications ?Medication ?Instructions ?Recorded ?Confirmed ?Type amlodipine 5 mg tablet 5 mg PO DAILY #90 tabs 07/05/24 08/06/24 Rx atorvastatin 10 mg tablet 10 mg PO DAILY #90 tabs 08/04/24 08/06/24 Rx benzonatate 200 mg capsule 200 mg PO TID PRN cough #30 caps 08/04/24 08/06/24 Rx Allergies Allergy/AdvReac Type Severity Reaction Status Date / Time amoxicillin Allergy Unknown joint pain Verified 08/05/24 21:55 clindamycin Allergy Rash Verified 08/05/24 21:55 cockroach Allergy Unknown Verified 08/05/24 21:55 Vital Signs Vital Signs - 24 hr 08/05/24 18:44 08/05/24 19:41 08/05/24 19:41 Temperature 97.9 F Pulse Rate 93 79 Respiratory Rate 18 Blood Pressure 134/81 Pulse Oximetry 94 93 Oxygen Delivery Room Air Nasal Cannula Oxygen Flow Rate 3 08/05/24 19:42 08/05/24 19:42 08/05/24 20:32 Temperature 98.5 F Pulse Rate 80 79 Respiratory Rate 16 18 Blood Pressure 135/82 Pulse Oximetry 93 93 Oxygen Delivery Nasal Cannula Oxygen Flow Rate 3 08/05/24 20:33 08/05/24 21:15 08/05/24 21:17 Temperature Pulse Rate 75 Respiratory Rate 18 Blood Pressure Pulse Oximetry 92 95 Oxygen Delivery Nasal Cannula Nasal Cannula Oxygen Flow Rate 3 3 08/05/24 21:51 08/05/24 22:04 08/05/24 22:31 Temperature 98.7 F 97.9 F Pulse Rate 90 84 Respiratory Rate 22 H 25 H Blood Pressure 137/85 143/82 H Pulse Oximetry 92 94 93 Oxygen Delivery Nasal Cannula Oxygen Flow Rate 4 08/05/24 23:01 08/06/24 00:27 08/06/24 01:00 Temperature 98.5 F 97.9 F 98.9 F Pulse Rate 83 80 88 Respiratory Rate 20 27 H 20 Blood Pressure 138/82 136/71 150/77 H Pulse Oximetry 91 93 90 Oxygen Delivery Oxygen Flow Rate 08/06/24 02:13 Temperature Pulse Rate Respiratory Rate Blood Pressure Pulse Oximetry 90 Oxygen Delivery Nasal Cannula Oxygen Flow Rate 4 Exam 2 Narrative: Weight 97.6 kg BMI 30.9 Const: Other: no acute distress, well developed well nourished HENMT: Other: moist mucous membranes, head normocephalic atramatic Eyes: Other: PEERLA, nonicteric Neck: Other: no LAD, supple Resp: Other: wheezes and rhonci bilateral, no increased wob Cardio: Other: reg rate, reg rythm, 2+ pedal and radial pulses GI: Other: soft non tender non distended Skin: Other: warm to touch, no reashes Neuro: Other: A&Ox4, no localizing deficits noted during conversation Extrem: Other: no clubbig, cyanosis or edema Psych: Other: appropriate mood and affect, good judgement and incite H&P: Results Labs Labs: Laboratory Tests 08/05/24 20:01 08/05/24 20:02 08/05/24 08/05/24 08/05/24 20:01 20:02 20:16 WBC 5.4 RBC 4.50 L Hgb 15.3 Hct 42.6 MCV 94.7 MCH 34.0 MCHC 35.9 RDW 12.8 Plt Count 187 MPV 8.7 Immature Gran % (Auto) 0.4 Neut % (Auto) 70.7 Lymph % (Auto) 10.8 L Dale % (Auto) 14.0 H Eos % (Auto) 2.8 Baso % (Auto) 1.3 H Lymph # (Auto) 0.58 L Dale # (Auto) 0.8 H Eos # (Auto) 0.2 Baso # (Auto) 0.1 Abs Immat Gran (auto) 0.02 Absolute Neuts (auto) 3.8 Absolute Nucleated RBC 0.000 Nucleated RBC % 0.0 D-Dimer < 0.27 Puncture Site Right brachial ABG pH 7.448 ABG pCO2 37.8 ABG pO2 59.0 L ABG PO2/FiO2 Ratio 1.84 ABG HCO3 25.6 ABG O2 Saturation 91.8 L ABG O2 Content 19.9 ABG Base Excess 1.7 A-a Gradient 124.9 Oxyhemoglobin 89.9 L Total Hemoglobin 15.8 O2 Delivery Device Nasal cannula O2 Liters/Min 3.0 FiO2 32 Sodium Cancelled 136 L Potassium Cancelled 3.5 Chloride Cancelled 104 Carbon Dioxide Cancelled 25 Anion Gap Cancelled 7 BUN Cancelled 9 Creatinine Cancelled 0.70 Estim Creat Clear Calc Cancelled 110 Estimated GFR Cancelled > 60 Glucose Cancelled 94 Calcium Cancelled 8.9 Total Bilirubin Cancelled 0.7 AST Cancelled 32 ALT Cancelled 42 Alkaline Phosphatase Cancelled 61 Troponin I < 0.012 NT-Pro-B Natriuret Pep 21 Total Protein Cancelled 7.0 Albumin Cancelled 4.5 Urine Color Urine Appearance Urine pH Ur Specific [place] Urine Protein Urine Glucose (UA) Urine Ketones Ur Blood (Man) Urine Nitrate Urine Bilirubin Urine Urobilinogen Leukocyte Esterase Rfl Influenza A (RT-PCR) Negative Influenza B (RT-PCR) Negative RSV (RT-PCR) Negative SARS-CoV-2 RNA (RT-PCR) Negative 08/05/24 08/05/24 22:59 23:10 WBC RBC Hgb Hct MCV MCH MCHC RDW Plt Count MPV Immature Gran % (Auto) Neut % (Auto) Lymph % (Auto) Dale % (Auto) Eos % (Auto) Baso % (Auto) Lymph # (Auto) Dale # (Auto) Eos # (Auto) Baso # (Auto) Abs Immat Gran (auto) Absolute Neuts (auto) Absolute Nucleated RBC Nucleated RBC % D-Dimer Puncture Site ABG pH ABG pCO2 ABG pO2 ABG PO2/FiO2 Ratio ABG HCO3 ABG O2 Saturation ABG O2 Content ABG Base Excess A-a Gradient Oxyhemoglobin Total Hemoglobin O2 Delivery Device O2 Liters/Min FiO2 Sodium Potassium Chloride Carbon Dioxide Anion Gap BUN Creatinine Estim Creat Clear Calc Estimated GFR Glucose Calcium Total Bilirubin AST ALT Alkaline Phosphatase Troponin I < 0.012 NT-Pro-B Natriuret Pep Total Protein Albumin Urine Color Yellow Urine Appearance Clear Urine pH 6.5 Ur Specific [place] 1.018 Urine Protein Negative Urine Glucose (UA) Negative Urine Ketones Trace H Ur Blood (Man) Negative Urine Nitrate Negative Urine Bilirubin Negative Urine Urobilinogen 1.0 Leukocyte Esterase Rfl Negative Influenza A (RT-PCR) Influenza B (RT-PCR) RSV (RT-PCR) SARS-CoV-2 RNA (RT-PCR) Impressions Chest X-Ray 08/05/24 20:51 IMPRESSION: 1. No acute cardiopulmonary disease. Chest CT 08/05/24 21:31 IMPRESSION: 1. Tree-in-bud opacities in left upper lobe and left lower lobe, consistent with mild pneumonia. 2. Anterior mediastinal mass on the left with improvement from 08/20/2023, consistent with lymphoma. EKG: Initial EKG demonstrated sinus rhythm deviation repeat EKG demonstrated Sinus rhythm with first-degree AV block with rate of 84 normal QTC marked left axis deviation All imaging and EKGs personally reviewed and interpreted. And unless stated otherwise agree with radiologic and cardiology interpretation. Assessment and Plan Assessment and plan (1) Pneumonia: Qualifiers: Laterality: left Lung location: upper lobe of lung Pneumonia type: due to unspecified organism Qualified Code(s): J18.9 - Pneumonia, unspecified organism Code(s): J18.9 - Pneumonia, unspecified organism Status: Acute (2) Acute hypoxic respiratory failure: Code(s): J96.01 - Acute respiratory failure with hypoxia Status: Acute (3) OSMAN on CPAP: Code(s): G47.33 - Obstructive sleep apnea (adult) (pediatric); Z99.89 - Dependence on other enabling machines and devices Status: Acute (4) Tobacco abuse: Code(s): Z72.0 - Tobacco use Status: Acute (5) B-cell lymphoma: Qualifiers: B-cell lymphoma type: unspecified B-cell Lymphoma site: intrathoracic nodes Qualified Code(s): C85.12 - Unspecified B-cell lymphoma, intrathoracic lymph nodes Code(s): C85.10 - Unspecified B-cell lymphoma, unspecified site Status: Acute Plan Patient presents with acute hypoxic respiratory failure due to left upper lobe pneumonia noted on CT scan. The patient was started on empiric antibiotic therapy with Rocephin and azithromycin. Will check urine Legionella and pneumococcal antigen. Blood cultures have been obtained and are pending. Patient does also have a significant history of tobacco abuse in there may be some component of underlying reactive airway versus previously undiagnosed COPD?. Will place patient on scheduled DuoNeb q.6 hours. Will wean oxygen as tolerated. Will repeat CBC and electrolyte panel on the . Smoking cessation education patient was provided. He would benefit from outpatient PFTs once his acute illness has resolved. Auto titrating CPAP/BiPAP has been ordered. I have told the patient that he can have his bring in his home unit if he so desires. He may have some component of immunocompromise with active ongoing B-cell lymphoma. However he is not currently on chemotherapy. And his radiation therapy was several months ago. Will monitor closely. If condition worsens we may need to consider broadening antibiotic coverage and or transfer to where the patient receives his oncologic care. Quality VTE Prophylaxis VTE prophylaxis: pharmacologic ordered (Lovenox 40 mg subQ daily) Hospitalist MIPS Advance Care Plan I have confirmed that the patient's Advanced Care Plan is present, code status is documented, or surrogate decision maker is listed in patient medical record.: Yes Medication Reconciliation I have utilized all available resources to obtain, update and review the patients current medications (includes all prescriptions, OTC, herbals, cannabis, and nutritional supplements).: Yes
[2024-08-06] MEDS: IPRATROPIUM 0.5 MG/ALBUTEROL SULFATE 2.5 MG AMPUL.NEB 3 ML INHALATION ×3 (07:14→20:40)
[2024-08-06] MEDS: BENZONATATE 100 MG CAPSULE 200 MG PO ×2 (08:29→14:16)
[2024-08-06] MEDS: amLODIPine BESYLATE 5 MG TABLET PO (08:29)
[2024-08-06] MEDS: ATORVASTATIN 10 MG TABLET PO (08:29)
--- NOTE | 2024-08-06 14:04 | P.PNCROSS_ITS ---
Event Note Event Note Event Note: Patient is a 63-year-old male he had been seen and assessed by previous provider same day. Followed up with patient currently still requiring his 4 L of supplemental oxygen oxygen to maintain oxygen saturation 92%. Patient denies any oxygen use at home however did report he recently had COVID back in April and now was admitted for community-acquired pneumonia of the right upper lobe. Patient with previous treatment of radiation and chemotherapy for B-cell lymphoma known current findings scheduled for chemotherapy 08/12/2024. Patient currently on IV antibiotics, DuoNebs for pneumonia however will give low-dose prednisone patient is a long-time smoker likely has some underlying COPD exacerbation however has never been diagnosed I encouraged him to seek PFT studies at discharge does have a history of sleep apnea and uses a CPAP at night. We will plan for home O2 walk study prior to discharge will continue with current treatment and evaluate patient's response to treatment. Will continue to wean patient's oxygen as tolerated. Also provided education on sm oking cessation. Patient did endorse shortness of breath worse with exertion but denied any chest pain, nausea, vomiting, fever chills.
[2024-08-06] MEDS: predniSONE 20 MG TABLET 40 MG PO (14:16)
[2024-08-06] MEDS: guaiFENesin 12 HR 600 MG TABCR 1200 MG PO (20:47)
[2024-08-06] MEDS: AZITHROMYCIN 500 MG/NS 250 ML 500 MG/250 ML BAG 250 MG IVPB (22:01)
[2024-08-07] VITALS (14 sets, daily range): BP systolic 127–145; BP diastolic 84–85; PULSE 74–88; RESP 16–20; TEMP 36.6–36.8; O2SAT 92–96
[2024-08-07] MEDS: IPRATROPIUM 0.5 MG/ALBUTEROL SULFATE 2.5 MG AMPUL.NEB 3 ML INHALATION ×4 (03:15→20:36)
[2024-08-07 06:25] LABS: Hematocrit 41.9 % (42.0-52.0); Hemoglobin 14.1 g/dL (14.0-18.0); Mean Corpuscular HGB Conc 33.7 g/dl (32-36); Mean Corpuscular Hemoglobin 32.9 pg (26-34); Mean Corpuscular Volume 97.9 fl (80-100); Mean Platelet Volume 8.8 fl (7.4-10.4); Platelet Count Result 177 k/mm3 (150-375); Red Blood Count 4.28 M/mm3 (4.6-6.20); Red Cell Distribution Width 13.1 % (11.5-14.5); White Blood Count 4.4 K/mm3 (4.5-10.0)
[2024-08-07 06:40] LABS: Alanine Aminotransferase 36 U/L (6-50); Albumin Level 4.3 g/dL (3.5-5.1); Alkaline Phosphatase 53 U/L (38-126); Anion Gap 7 mmol/L (4-12); Aspartate Amino Transferase 26 U/L (17-59); Bilirubin,Total 0.3 mg/dL (0.2-1.3); Blood Urea Nitrogen 10 mg/dL (9-20); Calcium 8.6 mg/dL (8.4-10.2); Carbon Dioxide 26 mmol/L (22-30); Chloride 108 mmol/L (98-107); Estimated CRCL calculation 127 ml/min; Estimated Glomerular Filt Rate > 60; Glucose 103 mg/dL (65-110); Potassium 3.3 mmol/L (3.4-5.0); Sodium 141 mmol/L (137-145)
[2024-08-07] MEDS: POTASSIUM CHLORIDE 20 MEQ ER TABLET 40 MEQ PO (09:17)
[2024-08-07] MEDS: ENOXAPARIN 40 MG/0.4 ML SYRINGE SUB-Q (09:18)
[2024-08-07] MEDS: ATORVASTATIN 10 MG TABLET PO (09:18)
[2024-08-07] MEDS: predniSONE 20 MG TABLET 40 MG PO (09:18)
[2024-08-07] MEDS: amLODIPine BESYLATE 5 MG TABLET PO (09:18)
[2024-08-07] MEDS: guaiFENesin 12 HR 600 MG TABCR 1200 MG PO ×2 (09:23→20:30)
--- NOTE | 2024-08-07 14:14 | P.PNIM_ITS ---
Progress Note: A&P Assessment and Plan (1) Acute hypoxic respiratory failure: Code(s): J96.01 - Acute respiratory failure with hypoxia Status: Acute Assessment and Plan: Patient with history of B-cell lymphoma last treatment in September of 2023 with radiation as well as recent COVID in April follow-up treatment to start 08/12 * CXR showing right upper lobe infiltrate * Bronchodilators. * incentive spirometry while awake. * influenza/COVID/RSV negative * Prednisone p.o. for pneumonia COPD * Legionella and pneumococcal pending * Rocephin and azithromycin * supplemental oxygen therapy to maintain oxygen 92% wean as tolerated * may need home O2 oxygen study prior to discharge * Smoking cessation counseling done * CMP/CBC daily I do believe there is a component of underlying COPD patient long-time smoker I recommend outpatient PFT studies (2) Pneumonia: Qualifiers: Laterality: left Lung location: upper lobe of lung Pneumonia type: due to unspecified organism Qualified Code(s): J18.9 - Pneumonia, unspecified organism Code(s): J18.9 - Pneumonia, unspecified organism Status: Acute Assessment and Plan: SEE ABOVE (3) OSMAN on CPAP: Code(s): G47.33 - Obstructive sleep apnea (adult) (pediatric); Z99.89 - Dependence on other enabling machines and devices Status: Acute Assessment and Plan: * Resumed CPAP (4) Tobacco abuse: Code(s): Z72.0 - Tobacco use Status: Acute Assessment and Plan: * Encouraged smoking cessation (5) B-cell lymphoma: Qualifiers: B-cell lymphoma type: unspecified B-cell Lymphoma site: intrathoracic nodes Qualified Code(s): C85.12 - Unspecified B-cell lymphoma, intrathoracic lymph nodes Code(s): C85.10 - Unspecified B-cell lymphoma, unspecified site Status: Acute Assessment and Plan: * follow-up outpatient with [facility] * treatment scheduled 08/12 Plan Code status: Full code per patient DVT prophylaxis: Lovenox Stress ulcer prophylaxis: Protonix 40 daily PT/OT notes: Ambulatory Disposition: Patient was admitted to the medical unit for acute respiratory failure with hypoxia secondary to pneumonia will continue with current treatment plan and attempt to wean oxygen if unable to wean he will need home O2 evaluation prior to discharge. Patient is ambulatory and plan will be to return home when medically stable. Time Spent With Patient Time with patient: 15 - 25 minutes Subjective Date/time seen: 08/07/24 14:14 Interval history: Patient is a 63 year old male admitted for treatment of acute respiratory failure with hypoxia secondary to pneumonia. 08/07/24: Patient reports breathing and SOB has improved currently weaned to 2L supplemental oxygen, still having productive cough but afebrile and no chills. No other complaints. Review of Systems Review of Systems: All systems reviewed & are unremarkable except as noted in HPI and below Exam Narrative: Physical Exam: * GENERAL: Alert and oriented x 3 pleasant male. No acute distress. * EYES: EOMI. No scleral icterus. PERRLA. * HEENT: Moist mucous membranes. * LUNGS: Left upper lung diminished also diminished on right upper lobe with scant wheezing throughout * CARDIOVASCULAR: Regular rate and rhythm. No murmur. No JVD. S1-S2 * ABDOMEN: Soft, non tenderness and non-distended. No palpable masses. * EXTREMITIES: No edema. Non-tender * SKIN: No rashes or lesions. Skin warm, dry. * NEUROLOGIC: No focal neurological deficits. CN II-XII grossly intact * PSYCHIATRIC: Appropriate mood and affect. Good judgement and insight. Objective Data Vital Signs Vital Signs: Vital Signs - 24 hr 08/06/24 20:00 08/06/24 20:40 08/06/24 20:50 Temperature Pulse Rate 86 88 Respiratory Rate 20 20 Blood Pressure Pulse Oximetry 93 Oxygen Delivery Nasal Cannula Oxygen Flow Rate 2 08/06/24 21:05 08/07/24 03:36 08/07/24 03:49 Temperature 97.4 F L Pulse Rate 91 80 82 Respiratory Rate 16 20 20 Blood Pressure 161/85 H Pulse Oximetry 93 Oxygen Delivery Oxygen Flow Rate 08/07/24 05:30 08/07/24 07:30 08/07/24 07:41 Temperature 97.8 F Pulse Rate 74 88 84 Respiratory Rate 20 20 20 Blood Pressure 145/84 H Pulse Oximetry 92 Oxygen Delivery Oxygen Flow Rate 08/07/24 09:20 08/07/24 09:34 08/07/24 13:05 Temperature Pulse Rate 87 Respiratory Rate 20 Blood Pressure Pulse Oximetry 92 92 Oxygen Delivery Nasal Cannula Nasal Cannula Oxygen Flow Rate 2 2 08/07/24 13:17 Temperature Pulse Rate 85 Respiratory Rate 20 Blood Pressure Pulse Oximetry Oxygen Delivery Oxygen Flow Rate Intake/Output Intake/Output: Intake & Output 08/04/24 08/05/24 08/06/24 08/07/24 23:59 23:59 23:59 23:59 Intake Total 1300 900 990 Output Total 2950 1750 Balance 1300 -1980 -412 Meds/Results Medications: Active Medications Generic Name Dose Route Start Last Admin Trade Name Freq PRN Reason Stop Dose Admin Albuterol/Ipratropium 3 ml 08/06/24 08:00 08/07/24 13:05 Ipratropium 0.5 Mg/Albuterol Sulfate 2.5 Mg Ampul.Neb 3 Ml INHALATION 3 ml Q6HRT CAMERON Administration Amlodipine Besylate 5 mg 08/06/24 09:00 08/07/24 09:18 Amlodipine Besylate 5 Mg Tablet PO 5 mg DAILY CAMERON Administration Atorvastatin Calcium 10 mg 08/06/24 09:00 08/07/24 09:18 Atorvastatin 10 Mg Tablet PO 10 mg DAILY CAMERON Administration Benzonatate 200 mg 08/06/24 02:53 08/06/24 14:16 Benzonatate 100 Mg Capsule PO 200 mg TID PRN Administration cough Enoxaparin Sodium 40 mg 08/06/24 09:00 08/07/24 09:18 Enoxaparin 40 Mg/0.4 Ml Syringe SUB-Q 40 mg DAILY CAMERON Administration Guaifenesin 1,200 mg 08/06/24 21:00 08/07/24 09:23 Guaifenesin 12 Hr 600 Mg Tabcr PO 1,200 mg Q12HR CAMERON Administration Ceftriaxone Sodium 1 gm in 50 mls @ 100 mls/hr 08/06/24 21:00 08/06/24 20:46 Rocephin 1 Gm/Ns 50 Ml IVPB 100 mls/hr Q24H CAMERON Administration Azithromycin 500 mg in 250 mls @ 250 mls/hr 08/06/24 22:00 08/06/24 22:01 Zithromax IVPB 250 mls/hr Q24H CAMERON Administration Prednisone 40 mg 08/06/24 14:10 08/07/24 09:18 Prednisone 20 Mg Tablet PO 40 mg DAILY@0800 CAMERON Administration Radiology Results: ITS Impressions Chest X-Ray 08/05/24 20:51 IMPRESSION: 1. No acute cardiopulmonary disease. Chest CT 08/05/24 21:31 IMPRESSION: 1. Tree-in-bud opacities in left upper lobe and left lower lobe, consistent with mild pneumonia. 2. Anterior mediastinal mass on the left with improvement from 08/20/2023, consistent with lymphoma. Labs Labs: Laboratory Results - last 24 hr 08/07/24 05:48 WBC 4.4 L RBC 4.28 L Hgb 14.1 Hct 41.9 L MCV 97.9 MCH 32.9 MCHC 33.7 RDW 13.1 Plt Count 177 MPV 8.8 Sodium 141 Potassium 3.3 L Chloride 108 H Carbon Dioxide 26 Anion Gap 7 BUN 10 Creatinine 0.60 L Estim Creat Clear Calc 127 Estimated GFR > 60 Glucose 103 Calcium 8.6 Total Bilirubin 0.3 AST 26 ALT 36 Alkaline Phosphatase 53 Total Protein 7.0 Albumin 4.3 Quality VTE Prophylaxis VTE prophylaxis: pharmacologic ordered -Patient's previous records reviewed on admission -ER notes reviewed in detail on admission -discussed all findings and current treatment plan with patient/Family/POA -Consultations reviewed for recommendations -Patient's disposition for safe discharge discussed with watch case polisher Dictation performed by [employer] direct speech recognition software, therefore medical corps officer variants and typographical errors may occur. Hospitalist MIPS Advance Care Plan I have confirmed that the patient's Advanced Care Plan is present, code status is documented, or surrogate decision maker is listed in patient medical record.: Yes Medication Reconciliation I have utilized all available resources to obtain, update and review the patients current medications (includes all prescriptions, OTC, herbals, cannabis, and nutritional supplements).: Yes The patient is not eligible for med reconciliation; the patient is in a emergent medical situation where delaying treatment would jeopardize the patients health.: No
--- NOTE | 2024-08-07 16:46 | PC.NURSE ---
On 08/07/24, the SECURITIES TRADER, [Fidelia Horn ], provided care and completed [facility] documentation on this patient. I have reviewed the SECURITIES TRADER's documentation and agree with the findings.
[2024-08-07] MEDS: AZITHROMYCIN 500 MG/NS 250 ML 500 MG/250 ML BAG 250 MG IVPB (21:15)
[2024-08-08] VITALS (9 sets, daily range): BP systolic 135–143; BP diastolic 78–85; PULSE 73–84; RESP 18–20; TEMP 36.2–37.2; O2SAT 91–95
[2024-08-08] MEDS: IPRATROPIUM 0.5 MG/ALBUTEROL SULFATE 2.5 MG AMPUL.NEB 3 ML INHALATION ×3 (01:53→12:58)
[2024-08-08 06:01] LABS: Hematocrit 41.2 % (42.0-52.0); Hemoglobin 14.2 g/dL (14.0-18.0); Mean Corpuscular HGB Conc 34.5 g/dl (32-36); Mean Corpuscular Hemoglobin 33.9 pg (26-34); Mean Corpuscular Volume 98.3 fl (80-100); Mean Platelet Volume 8.8 fl (7.4-10.4); Platelet Count Result 181 k/mm3 (150-375); Red Blood Count 4.19 M/mm3 (4.6-6.20); Red Cell Distribution Width 12.9 % (11.5-14.5); White Blood Count 6.9 K/mm3 (4.5-10.0)
[2024-08-08 06:17] LABS: Alanine Aminotransferase 66 U/L (6-50); Albumin Level 4.3 g/dL (3.5-5.1); Alkaline Phosphatase 49 U/L (38-126); Anion Gap 6 mmol/L (4-12); Aspartate Amino Transferase 45 U/L (17-59); Bilirubin,Total 0.3 mg/dL (0.2-1.3); Blood Urea Nitrogen 14 mg/dL (9-20); Calcium 8.5 mg/dL (8.4-10.2); Carbon Dioxide 26 mmol/L (22-30); Chloride 108 mmol/L (98-107); Estimated CRCL calculation 127 ml/min; Estimated Glomerular Filt Rate > 60; Glucose 117 mg/dL (65-110); Potassium 3.4 mmol/L (3.4-5.0); Sodium 140 mmol/L (137-145)
[2024-08-08] MEDS: predniSONE 20 MG TABLET 40 MG PO (09:17)
[2024-08-08] MEDS: guaiFENesin 12 HR 600 MG TABCR 1200 MG PO ×2 (09:17→20:38)
[2024-08-08] MEDS: amLODIPine BESYLATE 5 MG TABLET PO (09:17)
[2024-08-08] MEDS: ATORVASTATIN 10 MG TABLET PO (09:18)
[2024-08-08] MEDS: ENOXAPARIN 40 MG/0.4 ML SYRINGE SUB-Q (09:18)
--- NOTE | 2024-08-08 13:57 | P.PNIM_ITS ---
Progress Note: A&P Assessment and Plan (1) Acute hypoxic respiratory failure: Code(s): J96.01 - Acute respiratory failure with hypoxia Status: Acute Assessment and Plan: Patient with history of B-cell lymphoma last treatment in September of 2023 with radiation as well as recent COVID in April follow-up treatment to start 08/12 * CXR showing right upper lobe infiltrate * Bronchodilators. * incentive spirometry while awake. * influenza/COVID/RSV negative * Prednisone p.o. for pneumonia COPD * Legionella and pneumococcal pending * Rocephin and azithromycin * supplemental oxygen therapy to maintain oxygen 92% wean as tolerated * may need home O2 oxygen study prior to discharge * Smoking cessation counseling done * CMP/CBC daily I do believe there is a component of underlying COPD patient long-time smoker I recommend outpatient PFT studies (2) Pneumonia: Qualifiers: Laterality: left Lung location: upper lobe of lung Pneumonia type: due to unspecified organism Qualified Code(s): J18.9 - Pneumonia, unspecified organism Code(s): J18.9 - Pneumonia, unspecified organism Status: Acute Assessment and Plan: SEE ABOVE (3) OSMAN on CPAP: Code(s): G47.33 - Obstructive sleep apnea (adult) (pediatric); Z99.89 - Dependence on other enabling machines and devices Status: Acute Assessment and Plan: * Resumed CPAP (4) Tobacco abuse: Code(s): Z72.0 - Tobacco use Status: Acute Assessment and Plan: * Encouraged smoking cessation (5) B-cell lymphoma: Qualifiers: B-cell lymphoma type: unspecified B-cell Lymphoma site: intrathoracic nodes Qualified Code(s): C85.12 - Unspecified B-cell lymphoma, intrathoracic lymph nodes Code(s): C85.10 - Unspecified B-cell lymphoma, unspecified site Status: Acute Assessment and Plan: * follow-up outpatient with [facility] * treatment scheduled 08/12 Plan Code status: Full code per patient DVT prophylaxis: Lovenox Stress ulcer prophylaxis: Protonix 40 daily PT/OT notes: Ambulatory Disposition: Patient was admitted to the medical unit for acute respiratory failure with hypoxia secondary to pneumonia will continue with current treatment plan and attempt to wean oxygen if unable to wean he will need home O2 evaluation prior to discharge. Patient is ambulatory and plan will be to return home when medically stable. Subjective Date/time seen: 08/08/24 13:57 Interval history: Patient is a 63 year old male admitted for treatment of acute respiratory failure with hypoxia secondary to pneumonia. 08/08/24: Patient reports breathing and SOB has improved currently weaned to 2L supplemen km oxygen, Productive cough and tired today due to difficult night of sleeping. He also reported worsening SOB when her removed his oxygen after a breathing treatment. Currently on his cpap. Review of Systems Review of Systems: 12 systems were reviewed with pertinent positives and negatives per HPI. Except as documented in the HPI, all other systems were reviewed and are negative. All systems reviewed & are unremarkable except as noted in HPI and below Exam Narrative: Physical Exam: * GENERAL: Alert and oriented x 3 pleasant male. No acute distress. * EYES: EOMI. No scleral icterus. PERRLA. * HEENT: Moist mucous membranes. * LUNGS: Left upper lung diminished also diminished on right upper lobe with scant wheezing throughout * CARDIOVASCULAR: Regular rate and rhythm. No murmur. No JVD. S1-S2 * ABDOMEN: Soft, non tenderness and non-distended. No palpable masses. * EXTREMITIES: No edema. Non-tender * SKIN: No rashes or lesions. Skin warm, dry. * NEUROLOGIC: No focal neurological deficits. CN II-XII grossly intact * PSYCHIATRIC: Appropriate mood and affect. Good judgement and insight. Objective Data Vital Signs Vital Signs: Vital Signs - 24 hr 08/07/24 14:00 08/07/24 20:00 08/07/24 20:37 Temperature 98.0 F Pulse Rate 87 83 Respiratory Rate 16 20 Blood Pressure 145/85 H Pulse Oximetry 92 95 Oxygen Delivery Nasal Cannula Oxygen Flow Rate 2 08/07/24 20:45 08/07/24 21:44 08/08/24 01:54 Temperature 98.2 F Pulse Rate 84 84 Respiratory Rate 18 20 Blood Pressure 127/85 Pulse Oximetry 95 96 Oxygen Delivery Nasal Cannula Oxygen Flow Rate 2 08/08/24 02:05 08/08/24 04:30 08/08/24 07:30 Temperature 98.9 F Pulse Rate 83 79 73 Respiratory Rate 20 18 18 Blood Pressure 141/78 H Pulse Oximetry 91 95 Oxygen Delivery Nasal Cannula Oxygen Flow Rate 2 08/08/24 07:30 08/08/24 07:40 Temperature Pulse Rate 73 76 Respiratory Rate 18 18 Blood Pressure Pulse Oximetry Oxygen Delivery Oxygen Flow Rate Intake/Output Intake/Output: Intake & Output 08/05/24 08/06/24 08/07/24 08/08/24 23:59 23:59 23:59 23:59 Intake Total 1300 1200 1760 1300 Output Total 2950 1750 625 Balance 1300 -1750 10 675 Meds/Results Medications: Active Medications Generic Name Dose Route Start Last Admin Trade Name Freq PRN Reason Stop Dose Admin Albuterol/Ipratropium 3 ml 08/06/24 08:00 08/08/24 07:30 Ipratropium 0.5 Mg/Albuterol Sulfate 2.5 Mg Ampul.Neb 3 Ml INHALATION 3 ml Q6HRT CAMERON Administration Amlodipine Besylate 5 mg 08/06/24 09:00 08/08/24 09:17 Amlodipine Besylate 5 Mg Tablet PO 5 mg DAILY CAMERON Administration Atorvastatin Calcium 10 mg 12/20/24 09:00 08/08/24 09:18 Atorvastatin 10 Mg Tablet PO 10 mg DAILY CAMERON Administration Benzonatate 200 mg 08/06/24 02:53 08/06/24 14:16 Benzonatate 100 Mg Capsule PO 200 mg TID PRN Administration cough Enoxaparin Sodium 40 mg 08/06/24 09:00 08/08/24 09:18 Enoxaparin 40 Mg/0.4 Ml Syringe SUB-Q 40 mg DAILY CAMERON Administration Guaifenesin 1,200 mg 08/06/24 21:00 08/08/24 09:17 Guaifenesin 12 Hr 600 Mg Tabcr PO 1,200 mg Q12HR CAMERON Administration Ceftriaxone Sodium 1 gm in 50 mls @ 100 mls/hr 08/06/24 21:00 08/07/24 21:00 Rocephin 1 Gm/Ns 50 Ml IVPB Infused Q24H CAMERON Infusion Azithromycin 500 mg in 250 mls @ 250 mls/hr 08/06/24 22:00 08/07/24 21:15 Zithromax IVPB 250 mls/hr Q24H CAMERON Administration Prednisone 40 mg 08/06/24 14:10 08/08/24 09:17 Prednisone 20 Mg Tablet PO 40 mg DAILY@0800 CAMERON Administration Radiology Results: ITS Impressions Chest X-Ray 08/05/24 20:51 IMPRESSION: 1. No acute cardiopulmonary disease. Chest CT 08/05/24 21:31 IMPRESSION: 1. Tree-in-bud opacities in left upper lobe and left lower lobe, consistent with mild pneumonia. 2. Anterior mediastinal mass on the left with improvement from 08/20/2023, consistent with lymphoma. Labs Labs: Laboratory Results - last 24 hr 08/08/24 05:48 WBC 6.9 RBC 4.19 L Hgb 14.2 Hct 41.2 L MCV 98.3 MCH 33.9 MCHC 34.5 RDW 12.9 Plt Count 181 MPV 8.8 Sodium 140 Potassium 3.4 Chloride 108 H Carbon Dioxide 26 Anion Gap 6 BUN 14 Creatinine 0.60 L Estim Creat Clear Calc 127 Estimated GFR > 60 Glucose 117 H Calcium 8.5 Total Bilirubin 0.3 AST 45 ALT 66 H Alkaline Phosphatase 49 Total Protein 7.0 Albumin 4.3 Quality VTE Prophylaxis VTE prophylaxis: pharmacologic ordered
[2024-08-08] MEDS: BENZONATATE 100 MG CAPSULE 200 MG PO (14:28)
[2024-08-08] MEDS: NAPROXEN SODIUM 220 MG TABLET PO (16:22)
[2024-08-08] MEDS: AZITHROMYCIN 500 MG/NS 250 ML 500 MG/250 ML BAG 250 MG IVPB (21:58)
[2024-08-09] VITALS (12 sets, daily range): BP systolic 128; BP diastolic 77; PULSE 60–90; RESP 18–20; TEMP 36.7; O2SAT 87–93
[2024-08-09] MEDS: IPRATROPIUM 0.5 MG/ALBUTEROL SULFATE 2.5 MG AMPUL.NEB 3 ML INHALATION ×3 (01:30→14:17)
[2024-08-09 06:12] LABS: Hematocrit 40.3 % (42.0-52.0); Hemoglobin 13.8 g/dL (14.0-18.0); Mean Corpuscular HGB Conc 34.2 g/dl (32-36); Mean Corpuscular Hemoglobin 33.6 pg (26-34); Mean Corpuscular Volume 98.1 fl (80-100); Mean Platelet Volume 8.9 fl (7.4-10.4); Platelet Count Result 191 k/mm3 (150-375); Red Blood Count 4.11 M/mm3 (4.6-6.20); Red Cell Distribution Width 12.8 % (11.5-14.5); White Blood Count 5.5 K/mm3 (4.5-10.0)
[2024-08-09 06:34] LABS: Alanine Aminotransferase 69 U/L (6-50); Albumin Level 4.1 g/dL (3.5-5.1); Alkaline Phosphatase 57 U/L (38-126); Anion Gap 4 mmol/L (4-12); Aspartate Amino Transferase 42 U/L (17-59); Bilirubin,Total 0.3 mg/dL (0.2-1.3); Blood Urea Nitrogen 11 mg/dL (9-20); Calcium 8.6 mg/dL (8.4-10.2); Carbon Dioxide 29 mmol/L (22-30); Chloride 105 mmol/L (98-107); Estimated CRCL calculation 127 ml/min; Estimated Glomerular Filt Rate > 60; Glucose 103 mg/dL (65-110); Potassium 3.6 mmol/L (3.4-5.0); Sodium 138 mmol/L (137-145)
[2024-08-09] MEDS: guaiFENesin 12 HR 600 MG TABCR 1200 MG PO (09:39)
[2024-08-09] MEDS: predniSONE 20 MG TABLET 40 MG PO (09:39)
[2024-08-09] MEDS: ATORVASTATIN 10 MG TABLET PO (09:39)
[2024-08-09] MEDS: amLODIPine BESYLATE 5 MG TABLET PO (09:39)
[2024-08-09] MEDS: ENOXAPARIN 40 MG/0.4 ML SYRINGE SUB-Q (09:40)
[2024-08-09] MEDS: NAPROXEN SODIUM 220 MG TABLET PO (10:33)
--- NOTE | 2024-08-09 13:36 | P.DS_ITS ---
DS: Admitting Diagnosis Discharge Date 08/09/2024 Admitting Diagnosis Acute respiratory failure with hypoxia secondary to pneumonia and lymphoma DS: Discharge Diagnosis Discharge Diagnosis (1) Acute hypoxic respiratory failure: Code(s): J96.01 - Acute respiratory failure with hypoxia Status: Acute Assessment and Plan: * Discharged on 2 L supplemental oxygen * I do believe there is a component of underlying COPD patient long-time smoker I recommend outpatient PFT studies (2) Pneumonia: Qualifiers: Laterality: left Lung location: upper lobe of lung Pneumonia type: due to unspecified organism Qualified Code(s): J18.9 - Pneumonia, unspecified organism Code(s): J18.9 - Pneumonia, unspecified organism Status: Acute Assessment and Plan: * P.o. Levaquin x4 days * Incentive spirometer (3) OSMAN on CPAP: Code(s): G47.33 - Obstructive sleep apnea (adult) (pediatric); Z99.89 - Dependence on other enabling machines and devices Status: Acute Assessment and Plan: * Resumed CPAP (4) Tobacco abuse: Code(s): Z72.0 - Tobacco use Status: Acute Assessment and Plan: * Encouraged smoking cessation (5) B-cell lymphoma: Qualifiers: B-cell lymphoma type: unspecified B-cell Lymphoma site: intrathoracic nodes Qualified Code(s): C85.12 - Unspecified B-cell lymphoma, intrathoracic lymph nodes Code(s): C85.10 - Unspecified B-cell lymphoma, unspecified site Status: Acute Assessment and Plan: * follow-up outpatient with [facility] * treatment scheduled 08/12 Plan Disposition: Discharge home with home oxygen DS: Summary Hospital Course Reason for hospitalization: Acute respiratory failure with hypoxia secondary to pneumonia and lymphoma Hospital Course: 63-year-old male past medical history of essential hypertension, hyperlipidemia, obstructive sleep apnea and B-cell lymphoma who presented to the ER with cough and shortness of breath. He Underwent targeted radiation therapy for mediastinal mass associated with B-cell lymphoma and was treated with chemotherapy back in 2004. He had a recurrence of the B-cell lymphoma in September and has received 2 treatments with radiation therapy back in September. He subsequently had sequential PET scans which showed increased uptake of the mass and he is scheduled to start chemotherapy again on August 12. His malignancy is managed at [facility]. patient was found to right upper lobe infiltrates and was admitted to the medical unit for further evaluation and treatment of pneumonia. Patient had acute respiratory failure with hypoxia secondary to pneumonia and lymphoma and was requiring 4 L nasal cannula to sustained of SpO2 of 92%. patient did have normal WBC but this is likely suppressed due to lymphoma treatment. patient was started on IV Rocephin and azithromycin with duo nebulizer treatments as well as oral prednisone for underlying undiagnosed COPD. patient reports he is been a smoker since he was 15 years old however has never followed up with a automotive brake specialist or had PFT testing. we continue to wean oxygen tolerated however patient still was requiring 2 L in his shortness of breath still worse with exertion likely due to his underlying lymphoma COPD. patient overall did feel better however still requiring oxygen so a 6 minute home oxygen walk study was completed prior to discharge which time patient did he had 2 L nasal cannula supplemental oxygen at rest and with activity. patient was seen and assessed a discharge in no acute distress feeling close to baseline labs unremarkable and vital stable. he was discharged home on oral Levaquin and oral prednisone I encouraged him to follow up with his primary care physician as well as get referral to a automotive brake specialist for further PFT testing. Patient acknowledged and agreed with discharge plan and he is discharged home with oxygen. Status at Discharge Functional status at discharge: independent ambulation Time Spent with Patient Time attestation: Total time spent providing and/or coordinating discharge services: Time spent: Greater than 30 minutes Exam Narrative: Physical Exam: * GENERAL: Alert and oriented x 3 pleasant male. No acute distress. * EYES: EOMI. No scleral icterus. PERRLA. * HEENT: Moist mucous membranes. * LUNGS: Left upper lung diminished also diminished on right upper lobe but improving * CARDIOVASCULAR: Regular rate and rhythm. No murmur. No JVD. S1-S2 * ABDOMEN: Soft, non tenderness and non-distended. No palpable masses. * EXTREMITIES: No edema. Non-tender * SKIN: No rashes or lesions. Skin warm, dry. * NEUROLOGIC: No focal neurological deficits. CN II-XII grossly intact * PSYCHIATRIC: Appropriate mood and affect. Good judgement and insight. DS: Data Data Completed and Pending Labs on day of discharge: Labs from last 24 hours 08/09/24 05:45 WBC 5.5 RBC 4.11 L Hgb 13.8 L Hct 40.3 L MCV 98.1 MCH 33.6 MCHC 34.2 RDW 12.8 Plt Count 191 MPV 8.9 Sodium 138 Potassium 3.6 Chloride 105 Carbon Dioxide 29 Anion Gap 4 BUN 11 Creatinine 0.60 L Estim Creat Clear Calc 127 Estimated GFR > 60 Glucose 103 Calcium 8.6 Total Bilirubin 0.3 AST 42 ALT 69 H Alkaline Phosphatase 57 Total Protein 6.0 L Albumin 4.1 Preliminary micro results at discharge 08/05/24 20:01 Blood Culture - Preliminary Blood 08/05/24 20:14 Blood Culture - Preliminary Blood Imaging Radiologist's impression: EXAMINATION:CT diagnostic chest wo con DATE: 08/05/2024 21:29 INDICATION: Hypoxia. TECHNIQUE: Computed tomography (CT) of the chest was performed without intravenous contrast. Automated exposure control and iterative reconstruction technique were employed. The dose-length product (DLP) was 359.14 mGy-cm. COMPARISON: Chest CT 08/20/2023 FINDINGS: There is mild atelectasis in left lower lobe. There is mild bronchiectasis in the inferior lungs. There are tree-in-bud opacities in left upper lobe and left lower lobe. No pleural effusion. There is a 6.6 x 2.8 cm mass in the anterior mediastinum on the left, decreased from 9.5 x 4.0 cm on 08/20/2023. The heart size is normal. No pericardial effusion. There is mild bilateral gynecomastia. There is diffuse hepatic steatosis. There is a total right shoulder arthroplasty. There is mild thoracic spondylosis. IMPRESSION: 1. Tree-in-bud opacities in left upper lobe and left lower lobe, consistent with mild pneumonia. 2. Anterior mediastinal mass on the left with improvement from 08/20/2023, consistent with lymphoma. Discharge Plan Discharge Attending physician on discharge: Stanley Davis Consulting providers: Amaya Dong; Samuel Brennan V. Discharging Clinician: Stanley Davis Anticipated Discharge Date/Time: 08/09/24 13:23 Patient Disposition: Home, Self-Care Activity: may shower, unlimited and as tolerated Diet: heart healthy Discharge Instructions: Your being discharged home after treatment for community-acquired pneumonia prior to discharge it was determined we will need home oxygen 2 L please review information regarding oxygen safety attached. Have also prescribed oral antibiotic therapy please take as prescribed and continue till completed unit feeling better. Please continue to use your incentive spirometer I encourage follow-up with automotive brake specialist for further PFT testing How can you care for yourself at home? ? Keep track of any new symptoms or changes in your symptoms. ? Rest until you feel better. ? Be safe with medicines. Take your medicines exactly as prescribed. Call your doctor if you think you are having a problem with your medicine. ? Do not drive after taking a prescription pain medicine. ? Ensure to follow-up with primary care physician as indicated and provide updated medication list provided to you at discharge. When should you call for help? Call 911 anytime you think you may need emergency care. For example, call if: ? You passed out (lost consciousness). Call your doctor now or seek immediate medical care if: ? You have new symptoms like fever, difficulty breathing, Chest pain, vomiting, or rash. ? You have new or different pain. ? You are confused and are having trouble thinking clearly. ? Your symptoms are getting worse. Watch closely for changes in your health, and be sure to contact your doctor if: ? You do not get better as expected. Patient Instructions: Antibiotic Form, Using Oxygen at Home (DC), COPD (Chronic Obstructive Pulmonary Disease) (DC), Community Acquired Pneumonia (DC), Chronic Lung Disease and Infection Prevention (DC), Dyspnea Scale and Exercise (DC) Patient Language: Welsh Stand Alone Forms: General Discharge Information Follow-up/Referrals: Peng Castaneda MD [Primary Care Provider] - 4 Weeks Discharge Medications: New prednisone 20 mg Tablet 40 mg PO DAILY@0800 Qty: 2 0RF guaifenesin [Mucus Relief ER] 600 mg Tablet Extended Release 12hr 1,200 mg PO Q12HR Qty: 14 0RF levofloxacin 750 mg tablet 750 mg PO DAILY Qty: 5 0RF Continued benzonatate 200 mg capsule 200 mg PO TID PRN (Reason: cough) Qty: 30 0RF atorvastatin 10 mg tablet 10 mg PO DAILY Qty: 90 1RF amlodipine 5 mg tablet 5 mg PO DAILY Qty: 90 1RF Date of admission: 08/05/24 23:55 Primary Care Provider: Peng Castaneda Admitting Provider: Linda Diane Attending physician on admission: Sivan Barnes Condition: Stable Quality VTE Prophylaxis VTE prophylaxis: pharmacologic ordered -Patient's previous records reviewed on admission -ER notes reviewed in detail on admission -discussed all findings and current treatment plan with patient/Family/POA -Consultations reviewed for recommendations -Patient's disposition for safe discharge discussed with classification case manager Dictation performed by [employer] direct speech recognition software, therefore exhauster engineer variants and typographical errors may occur. Hospitalist MIPS Heart Failure (Exclusion) Patient has history of Heart Transplant or Left Ventricular Assistive Device?: No IF YES, STOP HERE Heart Failure (Qualifier) Patient has current or prior documentation of LVEF less than or equal to 40%, or mod/servere depressed LVSF?: No IF NO, STOP HERE
[2024-08-09 17:23] LABS: Pneumococcal Antigen Urine NOT DETECTED
[2024-08-17 21:29] LABS: Legionella pneumophila Ag Ur NOT DETECTED
== END 2024-08-09 15:05 | disposition home or self-care (01) | DRG 193 ==
LOC: ANHED 23:09 → ANH3MEDSUR 08-06 10:33
PROVIDERS: Admitting Provider Internal Medicine; Emergency Provider Emergency Medicine; PCP Family Medicine; Visit Provider Nurse Practitioner Family
DX: J18.9 Pneumonia, unspecified organism (principal); J96.01 Acute respiratory failure with hypoxia; C85.10 Unspecified B-cell lymphoma, unspecified site; J44.0 Chronic obstructive pulmonary disease with (acute) lower respiratory infection; I10 Essential (primary) hypertension; E78.5 Hyperlipidemia, unspecified; E21.3 Hyperparathyroidism, unspecified; G47.33 Obstructive sleep apnea (adult) (pediatric); F17.210 Nicotine dependence, cigarettes, uncomplicated; Z96.611 Presence of right artificial shoulder joint; Z86.16 Personal history of COVID-19
CPT/HCPCS: 36415; 36600; 71045; 71250; 80053; 81003; 82805; 83880; 84484; 85018; 85025; 85027; 85380; 87040; 87449; 87637; 87899; 93005; 94618; 94640; 96365; 96367; 99285; A9270; J0456; J0696; J1650; J7030; J7120; J7512

== ENCOUNTER 2025-02-15 13:42 | Outpatient (CLI) | payer OTHER, SELFPAY ==
--- OUTSIDE RECORDS SUMMARY | 2025-02-15 13:47 | XMS_ITS | Clinical Summary ---
Author Organization [facility] Address [address] [place] [id number] Care Team Providers Care Labor Contractor Name Role Phone Nga Ferraro MD Primary Care Provider [phone] Social History Tobacco Use Types Packs/Day Years Used Date Smoking Tobacco: Never Assessed Sex and Gender Information Value Date Recorded Sex Assigned at Not on file Legal Sex Male 7:23 PM CDT Gender Identity Not on file Sexual Orientation Not on file Last Filed Vital Signs Vital Sign Reading Time Taken Comments Blood Pressure 132/80 03/31/2017 3:08 PM CDT Pulse 79 03/31/2017 3:08 PM CDT Temperature - - Respiratory Rate - - Oxygen Saturation - - Inhaled Oxygen Concentration - - Weight 92.5 kg (204 lb) 03/31/2017 3:08 PM CDT Height 177.8 cm (5' 10) 03/31/2017 3:08 PM CDT Body Mass Index 29.27 03/31/2017 3:08 PM CDT Plan of Treatment Health Maintenance Due Date Last Done Comments Colorectal Cancer Screening Colonoscopy (10 Years) 1961 Annual Physical 1964 Hepatitis C 12/09/1979 DTaP, Tdap and Td Vaccines ( 1 - Tdap) 1980 Pneumococcal Vaccine: 50+ Ye ars (1 of 1 - PCV) 12/09/2011 Zoster Vaccines (1 of 2) 12/09/2011 COVID-19 Vaccine ( - 2023-2 5 season) 2024 RSV Immunization or 60+ Years (1 - 1-dose 75+ series) 2036 Meningococcal B Vaccine Aged Out No l onger eligible based on patient's age to complete this topic Meningococcal Vaccine Aged Out No shavon juan josé eligible based on patient's age to complete this topic RSV Immunizations Under 20 Months Aged Out No longer eligible based on patient's age to complete this topic Insurance Care Teams Labor Contractor Relationship Specialty Start Date End Date Nga Ferraro MD PCP - General 10/23/10
--- OUTSIDE RECORDS SUMMARY | 2025-02-15 13:47 | XMS_ITS | Encounter Summary ---
Author Organization [facility] Address 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
--- OUTSIDE RECORDS SUMMARY | 2025-02-15 13:47 | XMS_ITS | Encounter Summary ---
Author Organization [facility] Address 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 This is typical sinussymptoms for him with an early sinus infection. He reports no other issues today. Bactrim DS tends to work best for him with past experiences. We will send out Bactrim DS to be taken twice daily for 14 days. No refills having continue with decongestants, increase hydration, and will follow-up as needed. documented in this encounter Plan of Treatment Not on file documented as of this encounter Visit Diagnoses Not on filedocumented in this encounter
--- OUTSIDE RECORDS SUMMARY | 2025-02-15 13:47 | XMS_ITS | Encounter Summary ---
Author Organization [facility] Address [address] [place] [address] Care Team Providers Care Ocean Import Representative Name Role Phone Nga Ferraro MD Primary Care Provider [phone] Encounter Details Date Type Department Care Team (Late st Contact Info) Description 09/16/2023 Lab Requisition [facility] - Pathology Lab [address] [place] [id number] Joshua Anderson MD [address] [address] Illness, unspecified Social History Tobacco Use Types Packs/Day Years Used Date Smoking Tobacco: Never Assessed Sex and Gender Information Value Date Recorded Sex Assigned at Not on file Legal 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 Gender Identity Not on file Sexual Orientation Not on file documented as of this encounter Plan of Treatment Not on file documented as of this encounter Procedures Procedure Name Priority Date/Time Associated Diagnosis Comments PATHOLOGY TISSUE Routine 09/16/2023 1:02 PM MARINE TECHNICIAN Illness, unspecified documented in this encounter Results * PATHOLOGY TISSUE (09/16/2023 1:02 PM MARINE TECHNICIAN) Case Report Surgical Pathology Report Case: [id number] Authorizing Provider: Joshua Anderson MD Collected: 09/16/2023 01:02 PM Ordering Location: [facility] Care Pathology Lab Received: 09/16/2023 01:10 PM Pathologist: Sonia Parmar MD Specimen: Lung 09/17/2023 12:29 PM MARINE TECHNICIAN [facility] PATHOLOGY LAB Final Diagnosis Mass, left upper lobe / anterior mediastinum / chest wall, needle core biopsy: - 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 No areas of large cells or necrosis are identified. No epithelial elements to suggest thymic or lung parenchyma sampling are evident. Initial immunohistochemistry is performed at [facility] and interpreted at [facility]. The majority of cells are [id number] B-cells. Relatively few CD3-positive T-cells are present in the sampled tissue. CD10 shows a single, small apparent germinal center. Cam 5.2, pankeratin, TTF-1, and synaptophysin are negative. Additional immunohistochemistry is performed and interpreted at [facility] to further characterize the B-cells. CD5 is aberrantly expressed by the B-cells. CD23 identifies a few small and compressed follicular dendritic cell meshworks, but is largely negative in the B-cell infiltrate. Cyclin D1 is negative. 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 The immunophenotype is atypical given the lack of CD23 expression by the tumor cells. Correlation is advised to determine whether the sampling adequately represents the clinical features of the mass. 09/17/2023 12:29 PM [facility] Clinical History 62 year old man with a 7 cm anterior chest wall/mediastinal/left upper lobe mass. History of lymphoma. 09/17/2023 12:29 PM [facility] Materials Received Received are 17 slides and 1 block labeled [id number]. [place] [address]. All original materials are returned to the referring institution, along with a copy of our final report. 09/17/2023 12:29 PM [facility] Pathologist Location at [facility] 09/17/2023 12:29 PM [facility] Disclaimer The performance characteristics of all immunohistochemical and indirect immunofluorescence stains (if any) cited in this report were determined by the Histopathology Laboratory of [facility]. Some of these tests were developed by our own laboratory and have not been cleared or approved by the US Food and Drug Administration. The FDA does not require this test to go through premarket FDA review. These tests are used for clinical purposes. They should not be regarded as investigational or for research. This laboratory is certified under the Clinical Laboratory Improvement Amendments (CLIA) as qualified to perform high complexity clinical laboratory testing. This case has been personally reviewed and interpreted by the attending (teaching) pathologist. 09/17/2023 12:29 PM MARINE TECHNICIAN [facility] PATHOLOG[facility] LAB Embedded Images 09/17/2023 12:29 PM MARINE TECHNICIAN [facility] PATH[facility] LAB Pathology/Cytolo gy ENTIRE LUNG / Unknown 09/16/2023 1:02 PM MARINE TECHNICIAN 09/16/2023 1:10 PM MARINE TECHNICIAN us Joshua Anderson MD LAB - PATHOLOGY/CYTOLOGY ORDERAB LES Final Result Performing Organization Address City/State/[place] Co de Phone Number [facility] [address] [phone] documented in this encounter Visit Diagnoses Diagnosis Illness, unspecified documented in this encounter Care Teams Ocean Import Representative Relationship Specialty Start Date End Date Nga Ferraro MD [address] [place] [address] PCP - General 07/20/19 documented as of this encounter
--- OUTSIDE RECORDS SUMMARY | 2025-02-15 13:47 | XMS_ITS | Clinical Summary ---
Author Organization [facility] ([facility]3] [facility] Address [address] [place] [address] Phone Care Team Providers Care Freedom Of Information Officer Name Role Phone Unavailable Primary Care Provider Unavailabl e Immunizations Immunization Administration Dates Next Due (PFIZER)(12 YR UP) COVID-19 VACCINE - EMERGENCY USE AUTHORIZATION, MRNA, [id number](PF) 30 MCG/0.3 ML IM SUSP 07/17/2021 (Pfizer Bivalent)(12 Yr Up) COVID-19 Vaccine - Emergency Use Authorization, MRNA, Lnp-S(Pf) 30 Mcg/0.3 Ml Susp 06/27/2022 INFLUENZA VACCINE QUADRIVALENT 3 YR UP PF IM 05/2017 INFLUENZA VACCINE QUADRIVALENT 6 MOS UP PF IM ,05/02/2022 Social History Tobacco Use Types Packs/Day Years Used Date Smoking Tobacco: Never Assessed Sex and Gender Information Value Date Recorded Sex Assigned at Not on file Legal 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 Gender Identity Not on file Sexual Orientation Not on file Last Filed Vital Signs Vital Sign Reading Time Taken Comments Blood Pressure 136/82 03/19/2023 12:01 PM CDT Pulse 75 12/05/2022 2:00 PM CDT Temperature - - Respiratory Rate 16 12/05/2022 2:00 PM CDT Oxygen Saturation 94% 12/05/2022 2:00 PM CDT Inhaled Oxygen Concentration - - Weight - - Height - - Body Mass Index - - Plan of Treatment Health Maintenance Due Date Last Done Comments DTAP/TDAP/TD VACCINES (1 - Tdap) 1980 COLORECTAL SCREENING 2006 Colorectal Cancer Screening 2006 FIT-DNA Q 3 years 2006 FIT/FOBT Q 1 year 2006 Flex Sig/CT Colonography Q 5 years 2006 ZOSTER VACCINE (1 of 2) 12/09/2011 COVID-19 Vaccine ( - season) 04/18/202405/2022, 07/17/2021 INFLUENZA VACCINE (#1) 2025 , 05/02/2022, 05/27/2017 RSV VACCINE (60+ or ) (1 - 1-dose 75+ series) 2036 Insurance [facility] Member Subscriber Plan / Payer (Ef fective 2017-Present) Name:Carlton Hernandez Relation to Subscriber:Self Name:Carlton Hernandez Payer ID:Not on file Group ID:Not on file Type:[facility] Address: [address] [address]
--- OUTSIDE RECORDS SUMMARY | 2025-02-15 13:47 | XMS_ITS ---
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 Past Treatment and Therapy Plans No past plan information found. Radiation Treatments (No Episode) * Course [id number]_LUNG_202308/12/2024 - 08/26/2024 Treatment Period Energy Fraction Dose Fractions Total Dose Plans Planned DIBH LT LUNG 08/12/2024 - 08/26/2024 200 10 / 2,000 Reference Points Delivered PTV_media_20 08/12/2024 - 08/26/2024 2,000 * Course C1_LUL_202312/18/2023 - 08/13/2024 Treatment Period Energy Fraction Dose Fractions Total Dose Plans Planned DIBH LT LUNG 12/18/2023 - 08/13/2024 200 2 / 400 Reference Points Delivered LT LUNG 12/18/2023 - 08/13/2024 400
--- OUTSIDE RECORDS SUMMARY | 2025-02-15 13:47 | XMS_ITS | Clinical Summary ---
Author Organization [facility] Address [address] [place] [address] Care Team Providers Care Alarm Field Technician Name Role Phone Peng Castaneda MD Primary Care Provider Zackery Dong MD Unavailable [phone] [place] MD Unavailable [phone] Allergies Active Allergy Reactions Criticality Noted Date Comments Amoxicillin Clindamycin Rash Medium 10/09/2023 Medications amLODIPine (NORVASC) 5 mg tablet Take 1 tablet (5 mg total) by mouth daily Active atorvastatin (LIPITOR) 10 mg tablet Active chlorpheniramin e-phenylephrine 4-10 mg per tablet Take 1 tablet by mouth every 4 (four) hours as needed for congestion Active Active Problems Problem Noted Date Diagnosed Date 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 CLL (chronic lymphocytic leukemia) 11/11/2023 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 Hyperparathyroidism 01/01/2014 Overview (11/20/2016): HYPERPARATHYROIDISM NOS Encounters Date Type Department Care Team Description 01/20/2025 1:45 PM CDT Office Visit [facility] Bone Marrow Transplant [address] [place] [address] [address] [place] [address] Kari Birmingham, CRTT Extranodal marginal zone B-cell lymphoma (Primary Dx) 01/20/2025 1:15 PM CDT Lab [facility] at [address] [address] Extranodal marginal zone B-cell lymphoma 2024 1:00 PM CDT Office Visit [facility] Rad[facility] [address] [facility] [place] [address] Fidelia Ling, ANTWON 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] (Primary Dx) 12/01/2024 10:17 AM CDT - 12/01/2024 11:59 PM CDT Hospital Encounter [facility] [address] [place] [id number] Discharge Disposition: Discharge to home or self care 12/01/2024 10:17 AM CDT - 12/01/2024 11:59 PM CDT Hospital Encounter [facility]) [address] [place] [address] 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 (HCC) Discharge Disposition: Discharge to home or self care from Last 3 Months Surgical History Surgery Date Site/Laterality Comments PARATHYROID GLAND SURGERY 2009 Parathyroid Surgery SHOULDER SURGERY 10/16/2017 - 11/15/2017 RHINOPLASTY sino rhinoplasy 3 times KNEE SURGERY 08/18/2005 - 08/17/2006 BREAST LUMPECTOMY 08/18/2004 - 08/17/2005 US GUIDED LUNG BIOPSY 11/05/2023 N/A COLONOSCOPY Medical History Medical History Date Comments Lymphoma (HCC) Cancer, lymphoma Thyroid disease Hypertension Pneumonia 07/2024 Family History Medical History Relation Name Comments Other Other 1 No family histo ry of Cancer; Other Other 2 No family histo ry of Diabetes mellitus; Relation Name Status Comments Other 1 Other 2 Social History Tobacco Use Types Packs/Day Years Used Date Smoking Tobacco: Former Cigarettes Smokeless Tobacco: Never Tobacco Cessation:Counseling Given: Not Answered Alcohol Use Standard Drinks/Week Comments Yes 0 (1 standard drink = 0.6 oz pur e alcohol) AUDIT-C Answer Date Recorded Frequency of Alcohol Consumption Not on file 01/20/2025 Q2: How many drinks containi ng alcohol do you have on a typical day when you are drinking? 1 or 2 01/20/2025 Q3: How often do you have si x or more drinks on one occasion? Weekly 01/20/2025 Personal Safety Answer Date Recorded Have you ever been in or are you currently in a harmful physical or emotional relationship or is someone making you feel afraid or unsafe? 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 Gender Identity Not on file Sexual Orientation Not on file Obstetrics History Last Filed Vital Signs Vital Sign Reading Time Taken Comments Blood Pressure 129/80 01/20/2025 1:43 PM CDT Pulse 70 01/20/2025 1:43 PM CDT Temperature 36.6 C (97.8 F) 01/20/2025 1:43 PM CDT Respiratory Rate 18 01/20/2025 1:43 PM CDT Oxygen Saturation 96% 01/20/2025 1:43 PM CDT Inhaled Oxygen Concentration - - Weight 100 kg (220 lb 7.4 oz) 01/20/2025 1:43 PM CDT Height 179.1 cm (5' 10.5) 10/21/2024 1:27 PM CS T Body Mass Index 31.19 10/21/2024 1:27 PM DIRECTOR OF MANUFACTURING Plan of Treatment Health Maintenance Due Date Last Done Comments Colon Cancer Screening-Colonoscopy 1960 Depression Screening 1960 Hepatitis C Screening 1960 Prostate Cancer Screening-PSA 1961 Hepatitis B Screening 12/09/1979 Regular Well Visit/Exam 18-64 12/09/1979 Pneumococcal vaccine <65 (1 of 2 - PCV) 1980 Covid-19 Vaccine ( - 2023-2 5 season) 2024 06/27/2022, 07/17/2021, 12/06/2020, Additional history exists Influenza Vaccine (Season Ended) 2025 05/29/2023, 05/02/2022, 06/23/2020, Additional history exists DTaP/Tdap/Td Vaccine (2 - Td or Tdap) 07/27/2031 07/27/2021 Zoster Vaccine Completed 02/22/2021, 06/23/2020 Procedures Procedure Name Priority Date/Time Associated Diagnosis Comments EGFR Routine 01/20/2025 1:26 PM CDT Extranodal marginal zone B-cell lymphoma DIFFERENTIAL AUTO Routine 01/20/2025 1:2 6 PM CDT Extranodal marginal zone B-cell lymphoma LACTATE DEHYDROGENASE Routine 01/20/2025 1:26 PM CDT Extranodal marginal zone B-cell lymphoma COMPREHENSIVE METABOLIC PANEL Routine 01/20/2025 1:26 PM CDT Extranodal marginal zone B-cell lymphoma CBC WITH AUTO DIFFERENTIAL Routine 01/20/2025 1:26 PM CDT Extranodal marginal zone B-cell lymphoma PET/CT FDG SKULL TO THIGH Schedule Routine, Read Routine (OP Routine) 12/01/2024 12:34 PM CDT 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 73 m2 Comment: Interpretive Data Reference Interval Normal >/= 90 mL/min/1.73m2 Mildly decreased* 60 - 89 mL/min/1.73m2 Mildly to moderately decreased 45 - 59 mL/min/1.73m2 Moderately to severely decreased 30 - 44 mL/min/1.73m2 Severely decreased 15 - 29 mL/min/1.73m2 Kidney Failure < 15 mL/min/1.73m2 *Relative to young adult level Estimated glomerular filtration rate is determined by the 2020 CKD-EPI equation recommended by the National Kid[employer] (A Unifying Approach to GFR Estimation: Recommendations of the NKF-ASK Task Force on Reassessing the Inclusion of Race in Diagnosing Kidney Disease, JASN 2020). The CKD-EPI equation should not be used for patients with unstable renal function and has not been validated in children and those over 70. Current interpretive data was last reviewed 2021. Testing performed by: [facility], [address] [place] [address]., [id number] Blood 01/20/2025 1:26 PM CDT 01/20/2025 1:27 PM CDT Zackery Dong MD LAB BLOOD ORDERABLES Final R esult [facility] Department [place] [address] * (ABNORMAL) Differential, auto (01/20/2025 1:26 PM CDT) Neutrophil abs 2.23 1.50 - 6.50 K/cumm Comment:Testing performed by : [address] [address] Imm gran abs 0.01 0.00 - 0.10 K/cumm IKER Comment:Testing performed by : [address] [address] Lymphocyte abs 0.79(L) 0.80 - 3.30 K/cumm IKER Comment:Testing performed by : [address] [address] Monocyte abs 0.54 0.20 - 0.80 K/cumm IKER Comment:Testing performed by : [address] [address] Eosinophil abs 0.17 0.00 - 0.50 K/cumm IKER Comment:Testing performed by : [address] [address] Basophil abs 0.09 0.00 - 0.10 K/cumm IKER Comment:Testing performed by : [address] [address] Neutrophil pct 58.3 % IKER Comment: Interpretive Data Percent cell count reference ranges are not reported, since discordance with absolute values may lead to misinterpretation of CBC data. Current Interpretive Data was last revised on 2017. Testing performed by: [address] [address] Imm gran pct 0.3 % IKER Comment: Interpretive Data Percent cell count reference ranges are not reported, since discordance with absolute values may lead to misinterpretation of CBC data. Current Interpretive Data was last revised on 2017. Testing performed by: [address] [address] Lymphocyte pct 20.6 % [facility] Comment: Interpretive Data Percent cell count reference ranges are not reported, since discordance with absolute values may lead to misinterpretation of CBC data. Current Interpretive Data was last revised on 2017. Testing performed by: [address] [address] Monocyte pct 14.1 % [facility] Comment: Interpretive Data Percent cell count reference ranges are not reported, since discordance with absolute values may lead to misinterpretation of CBC data. Current Interpretive Data was last revised on 2017. Testing performed by: [address] [address] Eosinophil pct 4.4 % [facility] Comment: Interpretive Data Percent cell count reference ranges are not reported, since discordance with absolute values may lead to misinterpretation of CBC data. Current Interpretive Data was last revised on 2017. Testing performed by: [address] [address] Basophil pct 2.3 % [facility] Comment: Interpretive Data Percent cell count reference ranges are not reported, since discordance with absolute values may lead to misinterpretation of CBC data. Current Interpretive Data was last revised on 2017. Testing performed by: [address] [address] Blood 01/20/2025 1:26 PM CDT 01/20/2025 1:27 PM CDT us Zackery Dong MD LAB BLOOD ORDERABLES Final R esult IKER JON [address] [facility] [place] [address] * (ABNORMAL) CBC with auto differential (01/20/2025 1:26 PM CDT) WBC 3.83 3.80 - 9.90 K/cumm Comment:Testing performed by : [address], [address] Hgb 14.8 13.0 - 17.5 g/dL IKER Comment:Testing performed by : [address], [address] Hct 41.8 38.9 - 50.3 % IKER Comment:Testing performed by : [address], [address] Plt 212 150 - 400 K/cumm IKER Comment:Testing performed by : [address], [address] MPV 8.6(L) 9.1 - 12.3 fL IKER Comment:Testing performed by : [address], [address] RBC 4.54 4.30 - 5.80 M/cumm IKER Comment:Testing performed by : [address], [address] MCV 92.1 81.3 - 96.4 fL IKER Comment:Testing performed by : [address], [address] MCH 32.6 27.1 - 33.3 pg IKER Comment:Testing performed by : [address], [address] MCHC 35.4 32.3 - 35.7 g/dL IKER Comment:Testing performed by : [address], [address] RDW CV 13.2 11.1 - 14.9 % IKRE Comment:Testing performed by : [address], [address] RDW SD 44.4 35.7 - 48.1 fL IKER Comment:Testing performed by : [address], [address] NRBC abs 0.00 0.00 - 0.01 K/cumm IKER Comment:Testing performed by : [address], [address] ANC Prelim 2.23 1.50 - 6.50 K/cumm IKER Comment: Interpretive Data The rapid ANC is a preliminary automated count and may vary from the final ANC (Neut Abs) reported in the WBC differential that follows. Current interpretive data was last revised 2024. Testing performed by: [address] [address] Blood 01/20/2025 1:26 PM CDT 01/20/2025 1:27 PM CDT Zackery Dong MD LAB BLOOD ORDERABLES Final R esult Performing Organization Address [facility] Co de Phone Number [address] [place] [address] * Lactate dehydrogenase (LD) (01/20/2025 1:26 PM CDT) Lactate dehydrogenase (LDH) 166 100 - 250 Units/L Comment:Testing performed by : [address] [address] Blood 01/20/2025 1:26 PM CDT 01/20/2025 1:27 PM CDT Zackery Dong MD LAB BLOOD ORDERABLES Final R esult Performing Organization Address [facility] Co de Phone Number [address] [place] [address] * (ABNORMAL) Comprehensive metabolic panel (01/20/2025 1:26 PM CDT) Sodium 141 135 - 145 mmol/L Comment:Testing performed by : [address] [address] Potassium, pl 3.7 3.3 - 4.9 mmol/L IKER JON Comment:Testing performed by : [address] [address] Chloride 106 97 - 110 mmol/L IKER Comment:Testing performed by : [address] [address] CO2 24 22 - 32 mmol/L IKER JON Comment:Testing performed by : [address] [address] Anion gap 11 2 - 15 mmol/L IKER Comment:Testing performed by : [address] [address] BUN 12 6 - 25 mg/dL IKER Comment:Testing performed by : [address] [address] Creatinine 0.70(L) 0.80 - 1.30 mg/dL IKER Comment:Testing performed by : [address] [address] Glucose 105 70 - 199 mg/dL IKER Comment: Interpretive Data Fasting glucose >/= 126 mg/dl is diagnostic for diabetes. Fasting is defined as no caloric intake for at least 8 hours. Fasting glucose between 100 mg/dl to 125 mg/dl is diagnostic of prediabetes. In a patient with classic symptoms of hyperglycemia or hyperglycemic crisis, a random glucose >/= 200 mg/dl is diagnostic for diabetes. In the absence of unequivocal hyperglycemia, results should be confirmed by repeat testing. The classification and Diagnosis of Diabetes Diabetes Care 2021; 46: S19-S40. Current interpretive data was last revised 2022. Testing performed by: [address] [address] Calcium 9.2 8.5 - 10.3 mg/dL IKER Comment:Testing performed by : [address] [address] Bilirubin, total 0.4 0.1 - 1.2 mg/dL IKER Comment:Testing performed by : [address] [address] Protein, pl 6.6 6.5 - 8.5 g/dL IKER Comment:Testing performed by : [address] [address] Albumin 4.9 3.5 - 5.0 g/dL IKER Comment:Testing performed by : [address] [address] Alk phos 74 40 - 130 Units/L IKER Comment:Testing performed by : [facility], [address] [place] [address]., [address] ALT 30 7 - 55 Units/L IKER JON Comment:Testing performed by : [address] [address] AST 19 10 - 50 Units/L IKER JON Comment:Testing performed by : [facility], [address] [place] [address]., [address] Blood 01/20/2025 1:26 PM CDT 01/20/2025 1:27 PM CDT us Zackery Dong MD LAB BLOOD ORDERABLES Final R esult IKER [address] [facility] Department [place] [address] * PET/CT FDG Skull to Thigh (12/01/2024 12:34 PM CDT) Anatomical Region Laterality Modality N/A Positron Emissio n Tomography (PET) 12/01/2024 2:55 PM CDT Impressions 12/01/2024 3:59 PM CDT 1. Interval post-radiation changes within the left upper anterior mediastinal mass, which demonstrates a significant decrease in size and FDG avidity. A small linear component of this mass demonstrates minimally increased FDG avidity and may represent posttreatment changes versus, less likely, residual disease. Recommend attention on follow-up imaging. Based on comparison with blood pool, 5PS = 2. Complete metabolic response. 2. Reactive appearing right inguinal lymph nodes. Recommend attention on follow-up imaging. The 5PS score is most useful in lymphoma types that are routinely FDG-avid. Lymphomas can be roughly grouped as follows: * Routinely FDG-avid: Hodgkin lymphoma, diffuse large B-cell lymphomas, follicular lymphoma, mantle cell lymphoma, sharon peripheral T-cell lymphoma, lymphoblastic lymphoma, and Burkitt lymphoma. * Generally not FDG-avid: Small lymphocytic lymphoma and chronic lymphocytic leukemia * Variably FDG-avid (both varying between patients and between lesions): Marginal-zone lymphomas and some T-cell lymphomas, notably cutaneous T-cell lymphomas Caution should be used when applying the 5PS score in the second and third categories above. Dictated by: Serjio Dunn MD, PHD The radiology attending physician has personally reviewed this study, and had reviewed and/or edited this written report and agrees with it. Electronically signed by: Lynnette Downing M.D. Narrative 12/01/2024 3:59 PM CDT EXAMINATION: TUMOR FDG-PET/CT IMAGING DATE OF STUDY: 12/01/2024 [facility]: [facility] N mCT RADIOPHARMACEUTICAL: 17.54 mCi F-18 Fluorodeoxyglucose (FDG) i.v. Injection site: Right antecubital fossa. 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 The study is requested for restaging after completion of therapy. Subsequent treatment strategy. TECHNIQUE: The patient's fasting blood glucose level, measured by glucometer before injection of FDG, was 126 mg/dL. After intravenous administration of FDG, noncontrast CT images were obtained for attenuation correction and for fusion with emission PET images to allow for anatomical localization of PET findings. Emission PET images were then obtained. The study was interpreted on the [employer] workstation. The mean liver SUV (reported for senior quality control inspector purposes) is 1.3. The total scanned area was skull base to proximal thighs. Images of the body were obtained starting 76 minutes after injection of tracer. All reported SUVs are maximum SUVs, unless otherwise specified. COMPARISON: PET/CT dated 07/05/2024. DESCRIPTORS OF LESION FDG AVIDITY: Minimal: <= blood pool Mild: > blood pool and <= liver Moderate: > liver and <= 2x SUVmax liver Moderate to marked: >2x SUVmax liver and <= 3x SUVmax liver Marked: > 3x SUVmax liver FINDINGS: Interval post radiation changes within the upper thorax, with decrease in the conspicuity of a wedge-shaped area of FDG avid tissue within the anterior mediastinum posterior and to the left of the sternum (image 100/326). A small linear area at the superior margin of this previously seen mass measures 1.7 x 0.6 cm (image 85/326), demonstrating minimally increased FDG avidity with SUV of 1.3 (previously 4.2). Further interval decrease in the FDG avidity of a left subpectoral lymph node (image 75/326), which now demonstrates minimally increased FDG avidity and an SUV of 0.7 (previously 1.6). A right inguinal lymph node is not pathologically enlarged (image 265/326) with mildly increased FDG avidity and an SUV of 1.5, likely reactive in nature. No other new suspicious FDG-avid lymph node or mass. Moderate diffuse FDG avidity surrounding the glenohumeral and hip joints likely represents degenerative changes. Mild diffuse marrow activity is decreased compared to the prior examination. Moderate diffuse FDG avidity along the distal esophagus likely represents esophagitis. Moderate diffuse FDG avidity within the thyroid gland is seen in the setting of thyroiditis. The most FDG-avid lesion is the superior aspect of the left upper anterior mediastinal mass, with a maximum SUV of 1.3, and approximate axial dimensions of 1.7 x 0.6 cm. The uptake in this lesion is: less than blood pool (5PS 2). On the baseline study dated 07/05/2024, the most FDG-avid lesion was the left upper mediastinal mass with a maximum standardized uptake value (SUV) of 4.2. Compared to the current study, the percentage decrease in maximum SUV from baseline is 69%. Additional CT findings: Pneumatization of the petrous apices. Right cell of [place]. Bilateral mandibular gia. Postsurgical changes of bilateral maxillary antrostomy, with moderate mucosal thickening within the left maxillary sinus. Multiple dental restorations. Mild cardiomegaly. Bilateral gynecomastia. Mild atherosclerotic calcifications involving the aortobiiliac vessels. Small fat-containing periumbilical hernia. Lytic left iliac lesion with a sclerotic border and narrow zone transition demonstrates benign features. Right shoulder hemiarthroplasty. Procedure Note Lynnette Downing MD - 12/01/2024 EXAMINATION: TUMOR FDG-PET/CT IMAGING DATE OF STUDY: 12/01/2024 SCANNER: [facility] [employer] RADIOPHARMACEUTICAL: 17.54 mCi F-18 Fluorodeoxyglucose (FDG) i.v. Injection site: Right antecubital fossa. 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 The study is requested for restaging after completion of therapy. Subsequent treatment strategy. TECHNIQUE: The patient's fasting blood glucose level, measured by glucometer before injection of FDG, was 126 mg/dL. After intravenous administration of FDG, noncontrast CT images were obtained for attenuation correction and for fusion with emission PET images to allow for anatomical localization of PET findings. Emission PET images were then obtained. The study was interpreted on the [employer] workstation. The mean liver SUV (reported for senior quality control inspector purposes) is 1.3. The total scanned area was skull base to proximal thighs. Images of the body were obtained starting 76 minutes after injection of tracer. All reported SUVs are maximum SUVs, unless otherwise specified. COMPARISON: PET/CT dated 07/05/2024. DESCRIPTORS OF LESION FDG AVIDITY: Minimal: <= blood pool Mild: > blood pool and <= liver Moderate: > liver and <= 2x SUVmax liver Moderate to marked: >2x SUVmax liver and <= 3x SUVmax liver Marked: > 3x SUVmax liver FINDINGS: Interval post radiation changes within the upper thorax, with decrease in the conspicuity of a wedge-shaped area of FDG avid tissue within the anterior mediastinum posterior and to the left of the sternum (image 100/326). A small linear area at the superior margin of this previously seen mass measures 1.7 x 0.6 cm (image 85/326), demonstrating minimally increased FDG avidity with SUV of 1.3 (previously 4.2). Further interval decrease in the FDG avidity of a left subpectoral lymph node (image 75/326), which now demonstrates minimally increased FDG avidity and an SUV of 0.7 (previously 1.6). A right inguinal lymph node is not pathologically enlarged (image 265/326) with mildly increased FDG avidity and an SUV of 1.5, likely reactive in nature. No other new suspicious FDG-avid lymph node or mass. Moderate diffuse FDG avidity surrounding the glenohumeral and hip joints likely represents degenerative changes. Mild diffuse marrow activity is decreased compared to the prior examination. Moderate diffuse FDG avidity along the distal esophagus likely represents esophagitis. Moderate diffuse FDG avidity within the thyroid gland is seen in the setting of thyroiditis. The most FDG-avid lesion is the superior aspect of the left upper anterior mediastinal mass, with a maximum SUV of 1.3, and approximate axial dimensions of 1.7 x 0.6 cm. The uptake in this lesion is: less than blood pool (5PS 2). On the baseline study dated 07/05/2024, the most FDG-avid lesion was the left upper mediastinal mass with a maximum standardized uptake value (SUV) of 4.2. Compared to the current study, the percentage decrease in maximum SUV from baseline is 69%. Additional CT findings: Pneumatization of the petrous apices. Right cell of [place]. Bilateral mandibular gia. Postsurgical changes of bilateral maxillary antrostomy, with moderate mucosal thickening within the left maxillary sinus. Multiple dental restorations. Mild cardiomegaly. Bilateral gynecomastia. Mild atherosclerotic calcifications involving the aortobiiliac vessels. Small fat-containing periumbilical hernia. Lytic left iliac lesion with a sclerotic border and narrow zone transition demonstrates benign features. Right shoulder hemiarthroplasty. IMPRESSION: 1. Interval post-radiation changes within the left upper anterior mediastinal mass, which demonstrates a significant decrease in size and FDG avidity. A small linear component of this mass demonstrates minimally increased FDG avidity and may represent posttreatment changes versus, less likely, residual disease. Recommend attention on follow-up imaging. Based on comparison with blood pool, 5PS = 2. Complete metabolic response. 2. Reactive appearing right inguinal lymph nodes. Recommend attention on follow-up imaging. The 5PS score is most useful in lymphoma types that are routinely FDG-avid. Lymphomas can be roughly grouped as follows: * Routinely FDG-avid: Hodgkin lymphoma, diffuse large B-cell lymphomas, follicular lymphoma, mantle cell lymphoma, sharon peripheral T-cell lymphoma, lymphoblastic lymphoma, and Burkitt lymphoma. * Generally not FDG-avid: Small lymphocytic lymphoma and chronic lymphocytic leukemia * Variably FDG-avid (both varying between patients and between lesions): Marginal-zone lymphomas and some T-cell lymphomas, notably cutaneous T-cell lymphomas Caution should be used when applying the 5PS score in the second and third categories above. Dictated by: Serjio Dunn MD, PHD The radiology attending physician has personally reviewed this study, and had reviewed and/or edited this written report and agrees with it. Electronically signed by: Lynnette Downing M.D. Aurora Mesa MD IMG PET PROCEDURES Final R esult from Last 3 Months Insurance [facility] Advance Directives For more information, please contact: [phone] * Full Code (Latest Code Status on File) Date Activated Date Inactivated Comments 11/05/2023 7:23 AM 11/06/2023 4:52 AM Care Teams Alarm Field Technician Relationship Specialty Start Date End Date Peng Castaneda MD [address] [place] [address] PCP - General 09/15/17 Zackery Dong MD [address] [place] [address] Medical Oncologist/Dross Skimmer Medical Oncology 10/07/23 Aurora Mesa MD [address] [facility] [phone] [place] [address] Radiation Oncologist Radiation Oncology 12/22/23
--- OUTSIDE RECORDS SUMMARY | 2025-02-15 13:47 | XMS_ITS | Referral Summary ---
Author Organization [facility] Healthcare Address [address] [place] [address] Care Team Providers Care Supervisor Corduroy Cutting Name Role Phone Peng Castaneda MD Primary Care Provider Zackery Dong MD Unavailable [phone] Aurora Mesa MD Unavailable [phone] Encounters Date Type Department Care Team Description 01/20/2025 1:15 PM CDT Lab [facility] [address] [place] [address] Extranodal marginal zone B-cell lymphoma 01/20/2025 1:45 PM CDT Office Visit [facility] [address] [facility] [address] [place] [phone] Kari Birmingham NP Extranodal marginal zone B-cell lymphoma (Primary Dx) 2024 1:00 PM CDT Office Visit [facility] Radiation Oncology [address] [place] [address] [place] [address] Fidelia Ling NP 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] (Primary Dx) 12/01/2024 10:17 AM CDT - 12/01/2024 11:59 PM CDT Hospital Encounter [facility] [place] [address] Discharge Disposition: Discharge to home or self care 12/01/2024 10:17 AM CDT - 12/01/2024 11:59 PM CDT Hospital Encounter [facility]) [address] [place] [address] 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 The CKD-EPI equation should not be used for patients with unstable renal function and has not been validated in children and those over 70. Current interpretive data was last reviewed 2021. Testing performed by: [address] [address] Blood 01/20/2025 1:26 PM CDT 01/20/2025 1:27 PM CDT us Zackery Dong MD LAB BLOOD ORDERABLES Final R esult [address] Department of Laboratories [place], [place] [id number] * (ABNORMAL) Differential, auto (01/20/2025 1:26 PM CDT) Neutrophil abs 2.23 1.50 - 6.50 K/cumm Comment:Testing performed by : [address] [address] Imm gran abs 0.01 0.00 - 0.10 K/cumm IKER Comment:Testing performed by : [address] [address] Lymphocyte abs 0.79(L) 0.80 - 3.30 K/cumm IKER Comment:Testing performed by : [address] [address] Monocyte abs 0.54 0.20 - 0.80 K/cumm IKER Comment:Testing performed by : [address] [address] Eosinophil abs 0.17 0.00 - 0.50 K/cumm IKER Comment:Testing performed by : [address] [address] Basophil abs 0.09 0.00 - 0.10 K/cumm IKER Comment:Testing performed by : [address] [address] Neutrophil pct 58.3 % [facility] Comment: Interpretive Data Percent cell count reference ranges are not reported, since discordance with absolute values may lead to misinterpretation of CBC data. Current Interpretive Data was last revised on 2017. Testing performed by: [address] [address] Imm gran pct 0.3 % [facility] Comment: Interpretive Data Percent cell count reference ranges are not reported, since discordance with absolute values may lead to misinterpretation of CBC data. Current Interpretive Data was last revised on 2017. Testing performed by: [address] [address] Lymphocyte pct 20.6 % [facility] Comment: Interpretive Data Percent cell count reference ranges are not reported, since discordance with absolute values may lead to misinterpretation of CBC data. Current Interpretive Data was last revised on 2017. Testing performed by: [address] [address] Monocyte pct 14.1 % [facility] Comment: Interpretive Data Percent cell count reference ranges are not reported, since discordance with absolute values may lead to misinterpretation of CBC data. Current Interpretive Data was last revised on 2017. Testing performed by: [address] [address] Eosinophil pct 4.4 % [facility] Comment: Interpretive Data Percent cell count reference ranges are not reported, since discordance with absolute values may lead to misinterpretation of CBC data. Current Interpretive Data was last revised on 2017. Testing performed by: [address] [address] Basophil pct 2.3 % [facility] Comment: Interpretive Data Percent cell count reference ranges are not reported, since discordance with absolute values may lead to misinterpretation of CBC data. Current Interpretive Data was last revised on 2017. Testing performed by: [address] [place]., [address] Blood 01/20/2025 1:26 PM CDT 01/20/2025 1:27 PM CDT us Zackery Dong MD LAB BLOOD ORDERABLES Final R esult [facility] [address] [facility] Department [place] [address] * (ABNORMAL) CBC with auto differential (01/20/2025 1:26 PM CDT) WBC 3.83 3.80 - 9.90 K/cumm Comment:Testing performed by : [address] [address] Hgb 14.8 13.0 - 17.5 g/dL IKER Comment:Testing performed by : [address] [address] Hct 41.8 38.9 - 50.3 % IKER Comment:Testing performed by : [address] [address] Plt 212 150 - 400 K/cumm IKER Comment:Testing performed by : [address] [address] MPV 8.6(L) 9.1 - 12.3 fL IKER Comment:Testing performed by : [address] [address] RBC 4.54 4.30 - 5.80 M/cumm IKER Comment:Testing performed by : [address] [address] MCV 92.1 81.3 - 96.4 fL IKER Comment:Testing performed by : [address] [address] MCH 32.6 27.1 - 33.3 pg IKER Comment:Testing performed by : [address] [address] MCHC 35.4 32.3 - 35.7 g/dL IKER Comment:Testing performed by : [address] [address] RDW CV 13.2 11.1 - 14.9 % I[facility] JON Comment:Testing performed by : [address] [address] RDW SD 44.4 35.7 - 48.1 fL [facility] JON Comment:Testing performed by : [address] [address] NRBC abs 0.00 0.00 - 0.01 K/cumm IKER Comment:Testing performed by : [address] [address] ANC Prelim 2.23 1.50 - 6.50 K/cumm [facility] Comment: Interpretive Data The rapid ANC is a preliminary automated count and may vary from the final ANC (Neut Abs) reported in the WBC differential that follows. Current interpretive data was last revised 2024. Testing performed by: [address] [address] Blood 01/20/2025 1:26 PM CDT 01/20/2025 1:27 PM CDT us Zackery Dong MD LAB BLOOD ORDERABLES Final R esult Performing Organization Address [facility] Co de Phone Number [address] [place] [address] * Lactate dehydrogenase (LD) (01/20/2025 1:26 PM CDT) Lactate dehydrogenase (LDH) 166 100 - 250 Units/L Comment:Testing performed by : [address] [address] Blood 01/20/2025 1:26 PM CDT 01/20/2025 1:27 PM CDT Zackery Dong MD LAB BLOOD ORDERABLES Final R esult Performing Organization Address [facility] Co de Phone Number [address] [employer] [place] [address] * (ABNORMAL) Comprehensive metabolic panel (01/20/2025 1:26 PM CDT) Sodium 141 135 - 145 mmol/L Comment:Testing performed by : [address] [address] Potassium, pl 3.7 3.3 - 4.9 mmol/L IKER Comment:Testing performed by : [address] [address] Chloride 106 97 - 110 mmol/L IKER Comment:Testing performed by : [address], [place]., [address] CO2 24 22 - 32 mmol/L IKER Comment:Testing performed by : [address] [address] Anion gap 11 2 - 15 mmol/L IKER Comment:Testing performed by : [address] [address] BUN 12 6 - 25 mg/dL IKER Comment:Testing performed by : [address], [place]., [address] Creatinine 0.70(L) 0.80 - 1.30 mg/dL IKER Comment:Testing performed by : [address] [address] Glucose 105 70 - 199 mg/dL IKER [...] was last revised 2022. Testing performed by: [address] [address] Calcium 9.2 8.5 - 10.3 mg/dL IKER Comment:Testing performed by : [address] [address] Bilirubin, total 0.4 0.1 - 1.2 mg/dL [facility] Comment:Testing performed by : [address] [address] Protein, pl 6.6 6.5 - 8.5 g/dL IKER Comment:Testing performed by : [address] [address] Albumin 4.9 3.5 - 5.0 g/dL IKER Comment:Testing performed by : [address] [address] Alk phos 74 40 - 130 Units/L [facility] Comment:Testing performed by : [address] [address] ALT 30 7 - 55 Units/L [facility] Comment:Testing performed by : [address], [address] AST 19 10 - 50 Units/L [facility] Comment:Testing performed by : [address] [address] Blood 01/20/2025 1:26 PM CDT 01/20/2025 1:27 PM CDT Zackery Dong MD LAB BLOOD ORDERABLES Final R esult [facility] [address] [facility] Department of Laboratories [place], [place] [id number] * PET/CT FDG Skull to Thigh (12/01/2024 [...] FDG-PET/CT IMAGING DATE OF STUDY: 12/01/2024 SCANNER: [facility] [employer] RADIOPHARMACEUTICAL: 17.54 mCi F-18 Fluorodeoxyglucose (FDG) i.v. [...] obtained. The study was interpreted on the [employer] workstation. The mean liver SUV (reported for senior quality engineer purposes) is 1.3. The total scanned area [...] FDG-PET/CT IMAGING DATE OF STUDY: 12/01/2024 SCANNER: [facility] [employer] RADIOPHARMACEUTICAL: 17.54 mCi F-18 Fluorodeoxyglucose (FDG) i.v. [...] obtained. The study was interpreted on the [employer] workstation. The mean liver SUV (reported for senior quality engineer purposes) is 1.3. The total scanned area [...] R esult from Last 3 Months Insurance [facility] Advance Directives For more information, please contact: [phone] * Full Code (Latest Code Status on File) Date Activated Date Inactivated Comments 11/05/2023 7:23 AM 11/06/2023 4:52 AM Care Teams Supervisor Corduroy Cutting Relationship Specialty Start Date End Date Peng Castaneda MD [address] [place] [address] PCP - General 09/15/17 Zackery Dong MD [address] [place] [address] Medical Oncologist/Operations Research Group Manager Medical Oncology 10/07/23 Aurora Mesa MD [address] [facility] [phone] [place] [address] Radiation Oncologist Radiation Oncology 12/22/23
--- OUTSIDE RECORDS SUMMARY | 2025-02-15 13:47 | XMS_ITS | Clinical Summary ---
Author Organization [facility] Address [address] [facility] [place] [address] Care Team Providers Care Mental Health Tech Name Role Phone Nga Ferraro MD Primary Care Provider [phone] Source Comments [facility],non-owned Affiliates and Associated Physician Practices is amultiple site organization consisting of ambulatory clinics and hospital sitesin [place], [place], [place] and [place]. This disclosure is being madepursuant to the Care Everywhere program and may not contain all information available regarding this patient. 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 Gender Identity Not on file Sexual Orientation Not on file Plan of Treatment Health Maintenance Due Date Last Done Comments COLOGUARD (AGES 45-75) - COL ON CA SCREENING 1961 COLON MONITORING 1961 COLONOSCOPY - COLON CA SCREENING 1961 CT COLONOGRAPHY - COLON CA SCREENING 1961 Colorectal Cancer Screening 1961 FIT - COLON CA SCREENING 1961 FLEX SIG - COLON CA SCREENING 1961 LIPID TESTING 1961 HIV SCREENING 1976 HEPATITIS C SCREENING 12/04/1979 DTAP/TDAP/TD VACCINES (1 - Tdap) 1980 PNEUMOCOCCAL VACCINE 50+ (1 of 1 - PCV) 12/09/2011 ZOSTER VACCINE (1 of 2) 12/09/2011 COVID-19 VACCINE (3 - 2023-2 5 season) 2024 06/27/2022, 07/17/2021 DEPRESSION SCREENING 08/18/2024 INFLUENZA VACCINE (Season Ended) 2025 05/29/2023, 05/02/2022, 05/27/2017 Respiratory Syncytial Virus (RSV) Vaccine Pt: or over 60 yrs (1 - 1-dose 75+ series) 2036 HEPATITIS B VACCINE Aged Out No longe r eligible based on patient's age to complete this topic HIB VACCINE Aged Out No longer eligi ble based on patient's age to complete this topic HPV VACCINE Aged Out No longer eligi ble based on patient's age to complete this topic MENINGOCOCCAL (Group B) VACCINE SHARED DECISION-MAKING Aged Out No longer eligible based on patient's age to complete this topic MENINGOCOCCAL GROUPS A/C/Y/W VACCINE Aged Out No longer eligible b ased on patient's age to complete this topic Insurance SELF PAY NO INSURANCE Member Subscriber Plan / Payer (Ef fective for All Dates) Name:Shaniqua Paulino Member ID:Not on file Relation to Subscriber:Not on file Name:SHANIQUA PAULINO Subscriber ID:Not on file (Home) Address: [address] [place], [place] [address] [address] Payer ID:Not on file Group ID:Not on file Type:Self Pay Address: [place], [place] * Guarantor: SHANIQUA PAULINO Account Type Relation to Patient Date of Phone Billing Address Personal/Family Spouse [facility] [place] [address] SELF PAY NO INSURANCE Member Subscriber Plan / Payer (Ef fective for All Dates) Name:Shaniqua Paulino Member ID:Not on file Relation to Subscriber:Not on file Name:SHANIQUA PAULINO Subscriber ID:Not on file (Home) Address: [address] [place] [address] [place] [address] Payer ID:Not on file Group ID:Not on file Type:Self Pay Address: [place], [place] [address] Care Teams Mental Health Tech Relationship Specialty Start Date End Date Nga Ferraro MD [address] [id number] PCP - General 07/20/19
[2025-02-15 14:22] LABS: Alanine Aminotransferase 38 U/L (6-50); Albumin Level 4.5 g/dL (3.5-5.1); Alkaline Phosphatase 54 U/L (38-126); Anion Gap 8 mmol/L (4-12); Aspartate Amino Transferase 30 U/L (17-59); Bilirubin,Total 0.7 mg/dL (0.2-1.3); Blood Urea Nitrogen 12 mg/dL (9-20); Calcium 9.2 mg/dL (8.4-10.2); Carbon Dioxide 24 mmol/L (22-30); Chloride 107 mmol/L (98-107); Cholesterol 131 mg/dL (0-200); Estimated Glomerular Filt Rate > 60; Glucose 104 mg/dL (65-110); HDL Direct 49 mg/dL; Potassium 3.8 mmol/L (3.4-5.0); Sodium 139 mmol/L (137-145); Total Protein 6.8 g/dL (6.3-8.2); Triglycerides 193 mg/dL (<150)
[2025-02-15 14:52] LABS: Prostate Specific Antigen 0.8 ng/mL (< OR = 4.0)
[2025-02-15 20:37] LABS: Hemoglobin A1C. 5.7 % (<5.7)
== END 2025-02-15 13:43 | disposition home or self-care (01) ==
LOC: ANHLAB 13:44
PROVIDERS: PCP Family Medicine; Visit Provider Family Medicine
DX: Z00.00 Encounter for general adult medical examination without abnormal findings (principal); R35.1 Nocturia; I10 Essential (primary) hypertension; C85.10 Unspecified B-cell lymphoma, unspecified site; G47.33 Obstructive sleep apnea (adult) (pediatric); Z99.89 Dependence on other enabling machines and devices; E78.5 Hyperlipidemia, unspecified; C85.12 Unspecified B-cell lymphoma, intrathoracic lymph nodes; R73.01 Impaired fasting glucose
CPT/HCPCS: 36415; 80053; 80061; 83036; 84153

== ENCOUNTER 2025-05-15 12:52 | Emergency (ER) | payer OTHER, SELFPAY ==
[2025-05-15] VITALS (7 sets, daily range): BP systolic 123–135; BP diastolic 77–98; PULSE 83–95; RESP 9–20; TEMP 36.6; O2SAT 91–93
--- NOTE | ~2025-05-15 | XR_ITS ---
Examination: XR chest 2V Clinical History: SOB Comparison: 08/05/2024 Technique: Portable AP Findings: Heart size normal. Lungs clear. No acute bony abnormality. IMPRESSION: 1. No acute cardiopulmonary findings given portable technique. Reviewed, dictated and finalized at location R.
--- OUTSIDE RECORDS SUMMARY | 2025-05-15 12:53 | XMS_ITS | Encounter Summary ---
Author Organization [facility] Address 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
--- OUTSIDE RECORDS SUMMARY | 2025-05-15 12:53 | XMS_ITS | Encounter Summary ---
Author Organization [facility] Address [address] [place] [address] Care Team Providers Care Baker Operator Automatic Name Role Phone Unavailable Primary Care Provider Unavailabl e Encounter Details Date Type Department Care Team (Late st Contact Info) Description 08/07/2020 Chart Note [facility] Sports Medicine - 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
--- OUTSIDE RECORDS SUMMARY | 2025-05-15 12:53 | XMS_ITS | Clinical Summary ---
Author Organization [facility] Address [address] [place] [address] Care Team Providers Care Body Repairer Name Role Phone Nga Ferraro MD Primary Care Provider [phone] Social History Tobacco Use Types Packs/Day Years [...] COVID-19 Vaccine ( - 2023-2 5 season) 2025 RSV Immunization or 60+ Years (1 - [...] to complete this topic Insurance Care Teams Body Repairer Relationship Specialty Start Date End Date Nga Ferraro MD PCP - General 10/23/10
--- OUTSIDE RECORDS SUMMARY | 2025-05-15 12:53 | XMS_ITS | Clinical Summary ---
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
--- OUTSIDE RECORDS SUMMARY | 2025-05-15 12:53 | XMS_ITS | Clinical Summary ---
Author Organization [facility] Address [address] [facility] [place] [address] Care Team Providers Care Assistant Laboratory Director Name Role Phone Nga Ferraro MD Primary Care Provider [phone] Source Comments [facility],non-owned Affiliates and Associated Physician Practices is amultiple site organization consisting of ambulatory clinics and hospital sitesin [place], [place], [place] and [place]. This disclosure is being madepursuant to the Care Everywhere program and may not contain all information available regarding this patient. Last updated 18.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 Gender Identity Not on file Sexual Orientation [...] 12/09/2011 ZOSTER VACCINE (1 of 2) 12/09/2011 DEPRESSION SCREENING 08/18/2024 COVID-19 VACCINE (3 - 2024-2 6 season) 2025 06/27/2022, 07/17/2021 INFLUENZA VACCINE (#1) 2025 3, 05/02/2022, 05/27/2017 Respiratory Syncytial Virus (RSV) Vaccine [...] PAULINO Subscriber ID:Not on file (Home) Address: [address] [place], [place] [address] [address] Payer ID:Not on file Group ID:Not on file Type:Self Pay Address: [place], [place] * Guarantor: SHANIQUA PAULINO Account Type Relation to Patient Date of Phone Billing Address Personal/Family Spouse [facility] [place] [address] SELF PAY NO INSURANCE Member Subscriber Plan / Payer (Ef fective for All Dates) Name:Shaniqua Paulino Member ID:Not on file Relation to Subscriber:Not on file Name:SHANIQUA PAULINO Subscriber ID:Not on file (Home) Address: [address] [place] [address] [place] [address] Payer ID:Not on file Group ID:Not on file Type:Self Pay Address: [place], [place] [address] Care Teams Assistant Laboratory Director Relationship Specialty Start Date End Date Nga Ferraro MD [address] [id number] PCP - General 07/20/19
--- OUTSIDE RECORDS SUMMARY | 2025-05-15 12:53 | XMS_ITS ---
Author Organization [facility] Healthcare Address [address] [place] [address] Care Team Providers Care It Desktop Support Technician Name Role Phone Peng Castaneda MD Primary Care Provider Zackery Dong MD Unavailable [phone] Aurora Mesa MD Unavailable [phone] Active Problems Problem Noted Date Diagnosed Date [...]
--- OUTSIDE RECORDS SUMMARY | 2025-05-15 12:53 | XMS_ITS | Encounter Summary ---
Author Organization [facility] Address [address] [place] [address] Care Team Providers Care Special Needs Teacher Name Role Phone Nga Ferraro MD Primary Care Provider [phone] Encounter Details Date Type Department Care Team (Late st Contact Info) Description 09/16/2023 Lab Requisition [facility] - Pathology Lab [address] [place] [id number] Joshua Anderson MD [address] [id number] Illness, unspecified Social History Tobacco Use Types Packs/Day Years Used Date Smoking Tobacco: Never Assessed Sex and Gender Information Value Date Recorded Sex Assigned at Not on file 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 Gender Identity Not on file Sexual Orientation Not on file documented as of this encounter Plan of Treatment Not on file documented as of this encounter Procedures Procedure Name Priority Date/Time Associated Diagnosis Comments PATHOLOGY TISSUE Routine 09/16/2023 1:02 PM ROLLER COASTER DESIGNER Illness, unspecified documented in this encounter Results * PATHOLOGY TISSUE (09/16/2023 1:02 PM ROLLER COASTER DESIGNER) Case Report Surgical Pathology Report Case: [id number] Authorizing Provider: Joshua Anderson MD Collected: 09/16/2023 01:02 PM Ordering Location: [facility] Care Pathology Lab Received: 09/16/2023 01:10 PM Pathologist: Sonia Parmar MD Specimen: Lung 09/17/2023 12:29 PM ROLLER COASTER DESIGNER [facility] PATH[facility] Final Diagnosis Mass, left upper lobe / anterior mediastinum / chest wall, needle core biopsy: - 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 No areas of large cells or necrosis are identified. No epithelial elements to suggest thymic or lung parenchyma sampling are evident. Initial immunohistochemistry is performed at [facility] and interpreted at [facility]. The majority of cells are [id number] B-cells. Relatively few CD3-positive T-cells are present in the sampled tissue. CD10 shows a single, small apparent germinal center. Cam 5.2, pankeratin, TTF-1, and synaptophysin are negative. Additional immunohistochemistry is performed and interpreted at [facility] to further characterize the B-cells. CD5 is [...] features of the mass. 09/17/2023 12:29 PM [facility] Clinical History 62 year old man with a 7 cm anterior chest wall/mediastinal/left upper lobe mass. History of lymphoma. 09/17/2023 12:29 PM [facility] Materials Received Received are 17 slides and 1 block labeled [id number]. [place] [address]. All original materials are returned to the referring institution, along with a copy of our final report. 09/17/2023 12:29 PM [facility] Pathologist Location at [facility] 09/17/2023 12:29 PM [facility] Disclaimer The performance characteristics of all immunohistochemical and indirect immunofluorescence stains (if any) cited in this report were determined by the Histopathology Laboratory of [facility]. Some of these tests were [...] the attending (teaching) pathologist. 09/17/2023 12:29 PM ROLLER COASTER DESIGNER [facility] Embedded Images 09/17/2023 12:29 PM ROLLER COASTER DESIGNER [facility] Pathology/Cytolo gy ENTIRE LUNG / Unknown 09/16/2023 1:02 PM ROLLER COASTER DESIGNER 09/16/2023 1:10 PM ROLLER COASTER DESIGNER us Joshua Anderson MD LAB - PATHOLOGY/CYTOLOGY ORDERAB LES Final Result Performing Organization Address City/State/[facility] Co de Phone Number [facility] [address] [phone] documented in this encounter Visit Diagnoses Diagnosis Illness, unspecified documented in this encounter Care Teams Special Needs Teacher Relationship Specialty Start Date End Date Nga Ferraro MD [address] [place] [address] PCP - General 07/20/19 documented as of this encounter
--- OUTSIDE RECORDS SUMMARY | 2025-05-15 12:53 | XMS_ITS | Clinical Summary ---
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 Gender Identity Not on file Sexual Orientation [...] Body Mass Index 31.19 10/21/2024 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 Plan of Treatment Health Maintenance Due Date Last Done Comments Colon Cancer Screening-Colonoscopy 1961 Depression Screening 1961 Hepatitis C Screening 1961 Prostate Cancer Screening-PSA 1961 Hepatitis B Screening 12/09/1979 Regular Well Visit/Exam 18-64 12/09/1979 Pneumococcal vaccine <65 (1 of 2 - PCV) 1980 Covid-19 Vaccine (5 - 2024-2 6 season) 2025 06/27/2022, 07/17/2021, 12/06/2020, Additional history exists Influenza Vaccine (#1) 2025 , 05/02/2022, 06/23/2020, Additional history exists DTaP/Tdap/Td Vaccine (2 - Td or Tdap) 07/27/2031 07/27/2021 Zoster Vaccine Completed 02/22/2021, 06/23/2020 Insurance [place] [address] [facility] Advance Directives For more information, please contact: [phone] * Full Code (Latest Code Status on File) Date Activated Date Inactivated Comments 11/05/2023 7:23 AM 11/06/2023 4:52 AM Care Teams Prior Authorization Nurse Relationship Specialty Start Date End Date Peng Castaneda MD [address] [place] [address] PCP - General 09/15/17 Zackery Dong MD [address] [place] [address] Medical Oncologist/Director Of Event Marketing Medical Oncology 10/07/23 Aurora Mesa MD [address] [facility] [phone] [place] [address] Radiation Oncologist Radiation Oncology 12/22/23
--- NOTE | 2025-05-15 13:02 | ECG_ITS ---
Test Date: 2025-05-15 13:07:34 Measurements Intervals [place] Rate: 92 P: 28 AL: 197 QRS: -42 QRSD: 110 T: 57 QT: 362 QTc: 448 Interpretive Statements SINUS RHYTHM LEFTWARD AXIS Electronically Signed On 05-15-2025 20:50:20 CDT by Benjamin Ocampo D.O
[2025-05-15 13:17] LABS: Hematocrit 45.9 % (42.0-52.0); Hemoglobin 15.8 g/dL (14.0-18.0); Immature Granulocyte Percent A 0.3 % (0-0.5); Lymphocytes Absolute Auto 0.57 K/mm3 (0.9-3.2); Mean Corpuscular HGB Conc 34.4 g/dl (32-36); Mean Corpuscular Hemoglobin 33.0 pg (26-34); Mean Corpuscular Volume 95.8 fl (80-100); Nucleated Red Blood Cells Absolute Auto 0.000 K/mm3 (0.0-0.012); Nucleated Red Blood Cells Perc 0.0 % (0.0-0.2); Platelet Count Result 216 k/mm3 (150-375); Red Blood Count 4.79 M/mm3 (4.6-6.20); White Blood Count 7.1 K/mm3 (4.5-10.0)
[2025-05-15 13:36] LABS: Alanine Aminotransferase 39 U/L (6-50); Albumin Level 4.8 g/dL (3.5-5.1); Alkaline Phosphatase 68 U/L (38-126); Anion Gap 8 mmol/L (4-12); Aspartate Amino Transferase 27 U/L (17-59); Bilirubin,Total 0.8 mg/dL (0.2-1.3); Blood Urea Nitrogen 10 mg/dL (9-20); Calcium 9.0 mg/dL (8.4-10.2); Carbon Dioxide 25 mmol/L (22-30); Chloride 105 mmol/L (98-107); Estimated CRCL calculation 111 ml/min; Estimated Glomerular Filt Rate > 60; Glucose 117 mg/dL (65-110); Potassium 3.8 mmol/L (3.4-5.0); Sodium 138 mmol/L (137-145); Total Protein 7.2 g/dL (6.3-8.2)
--- NOTE | 2025-05-15 13:40 | ED.SOB ---
HPI - SOB/Dyspnea General Chief Complaint: Shortness of Breath/Dyspnea Stated Complaint: trouble breathing Time Seen by Provider: 05/15/25 13:06 History of Present Illness HPI Narrative: Patient is a 64-year-old male who presents ER with shortness of breath and cough. He has been having cough for approximately 4 months since completing radiation for her lymphoma in his mediastinum. He was told he may have a radiation pneumonitis for several months and thought that is all it was. No fevers or chills or sweats. Cough is productive. Associated with postnasal drip. Worse with laying down. States shortness of breath really began to today and that is why he came in. No chest pain or chest pressure. He is a smoker. Related Data Allergies Allergy/AdvReac Type Severity Reaction Status Date / Time amoxicillin Allergy Unknown joint pain Verified 05/15/25 13:06 clindamycin Allergy Rash Verified 05/15/25 13:06 cockroach Allergy Unknown Verified 05/15/25 13:06 Review of Systems Review of Systems: All systems reviewed & are unremarkable except as noted in HPI and below Constitutional: Constitutional: Reports no additional constitutional complaints ENT: Reports system reviewed and no additional complaints, except as documented Cardiovascular: Cardiovascular: Reports no additional cardiovascular complaints Respiratory: Respiratory: Reports no additional respiratory complaints Gastrointestinal: Gastrointestinal: Reports no additional gastrointestinal complaints [facility] Past Medical History Medical History Erectile dysfunction HTN (hypertension) Acute sinusitis Sleep apnea with use of continuous positive airway pressure (CPAP) Hyperparathyroidism Non-Hodgkin lymphoma in remission B-cell lymphoma initially diagnosed in 2004 and treated with 2.5 years of chemotherapy and some radiation therapy. He had a recurrence of the lymphoma September 2023 and underwent 2 radiation therapy treatments. His most recent PET scan still demonstrated increased activity of the mass in the left mediastinum and he is supposed to start chemotherapy on August 12. Surgical History Surgical History Status post left knee surgery ORIF of the patella followed several years later by arthroscopic debridement H/O shoulder replacement right H/O parathyroidectomy Hx of sinus surgery Family History Family History Mother Asthma Social History Social History Social History: He lives at home with his Jacqueline. They have been for 28 years. They have 2 sons and a daughter. Their children are 22, 19 and 17 years old respectively. He was a new work [employer] for 5 years in [facility] so he decided to join the . He was in the [employer] for 20 years. 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 He used to smoke up to 3 packs of cigarettes per day for few years but then cut down to less than a pack of cigarettes per day and has continued to smoke since then but is currently back down to a quarter pack of cigarettes per day. He drinks about 5 alcoholic beverages a week. He denies illicit substance use. Code Status: Full code Surrogate decision maker: Jacqueline () Smoking packs per day: 0.25 Smoking cigarettes per day: 5.0 Years smoked: 45 Smoking pack-years: 11.25 Smoking status: Former smoker Tobacco type: cigarettes Smoking end date: 08/05/24 Alcohol intake: current Alcohol use details: Occasionally Substance use: never Substance use type: does not use Do You Feel Safe in your Home?: Yes Lack of Transportation: No Lack of Food: Never True Current Housing: I Have Housing Concerned About Future Housing: No Difficulty Paying Gas/Electric Bills: No Difficulty Paying for Meds: No Currently Unemployed: YES Education: Master's Degree or Higher Difficulty w/ Childcare or Family Care: No Living arrangements: with family Occupation/Education: retired Gender identity (if verbalized by the patient): Male Sexual Orientation (if Verbalized by the Patient): Straight or Heterosexual Spiritual care concerns: No Exam Narrative: GENERAL: Well-appearing, well-nourished, and in no acute distress. HEAD: Normocephalic, atraumatic. ENT: Mucous membranes moist. CHEST: Very faint wheezing, worse on the right than left. No respiratory distress. HEART: Regular rate and rhythm. Normal peripheral pulses. ABDOMEN: Soft, nontender, nondistended. EXTREMITIES: Normal range of motion. No edema. SKIN: Warm, dry, no rash. NEURO: Alert and oriented x3. PSYCH: Normal mood and affect. Course Course Emergency Course: Breathing improved after hour long neb treatment. Will receive prednisone. Walking O2 eval with saturation between 90-92. Denies dyspnea. D/c with albuterol and prednisone. Strict return precautions. Vital Signs Vital signs: Vital Signs Temperature 97.8 F 05/15/25 12:53 Pulse Rate 95 05/15/25 12:53 Respiratory Rate 18 05/15/25 12:53 Blood Pressure 135/98 H 05/15/25 12:53 Pulse Oximetry 92 05/15/25 12:53 Temperature 97.8 F 05/15/25 12:53 Pulse Rate 93 05/15/25 15:51 Respiratory Rate 13 05/15/25 15:51 Blood Pressure 123/77 05/15/25 13:07 Pulse Oximetry 91 05/15/25 13:07 Oxygen Delivery Room Air 05/15/25 13:04 MDM - SOB/Dyspnea Lab Data 05/15/25 13:08 05/15/25 13:08 Labs: Lab Results 05/15/25 Range/Units 13:08 WBC 7.1 (4.5-10.0) K/mm3 RBC 4.79 (4.6-6.20) M/mm3 Hgb 15.8 (14.0-18.0) g/dL Hct 45.9 (42.0-52.0) % MCV 95.8 (80-100) fl MCH 33.0 (26-34) pg MCHC 34.4 (32-36) g/dl RDW 12.8 (11.5-14.5) % Plt Count 216 (150-375) k/mm3 MPV 8.5 (7.4-10.4) fl Immature Gran % (Auto) 0.3 (0-0.5) % Neut % (Auto) 76.4 H (45.5-73.1) % Lymph % (Auto) 8.0 L (18.3-44.2) % [place] % (Auto) 12.1 H (2.6-8.5) % Eos % (Auto) 2.4 (0-4.4) % Baso % (Auto) 0.8 (0.2-1.2) % Lymph # (Auto) 0.57 L (0.9-3.2) K/mm3 [place] # (Auto) 0.9 H (0.1-0.6) K/mm3 Eos # (Auto) 0.2 (0-0.3) K/mm3 Baso # (Auto) 0.1 (0.0-0.1) K/mm3 Abs Immat Gran (auto) 0.02 (0.00-0.031) K/mm3 Absolute Neuts (auto) 5.4 (1.3-6.7) K/mm3 Absolute Nucleated RBC 0.000 (0.0-0.012) K/mm3 Nucleated RBC % 0.0 (0.0-0.2) % Sodium 138 (137-145) mmol/L Potassium 3.8 (3.4-5.0) mmol/L Chloride 105 (98-107) mmol/L Carbon Dioxide 25 (22-30) mmol/L Anion Gap 8 (4-12) mmol/L BUN 10 (9-20) mg/dL Creatinine 0.68 L (0.7-1.3) mg/dL Estim Creat Clear Calc 111 ml/min Estimated GFR > 60 (59 - ) Glucose 117 H (65-110) mg/dL Calcium 9.0 (8.4-10.2) mg/dL Total Bilirubin 0.8 (0.2-1.3) mg/dL AST 27 (17-59) U/L ALT 39 (6-50) U/L Alkaline Phosphatase 68 (38-126) U/L Total Protein 7.2 (6.3-8.2) g/dL Albumin 4.8 (3.5-5.1) g/dL Imaging Data Radiologist's impression: ITS Impressions Chest X-Ray 05/15/25 13:23 IMPRESSION: 1. No acute cardiopulmonary findings given portable technique. ECG Data EKG #1: ECG completion date: 05/15/25 ECG completion time: 13:07 EKG Interpretation: normal rate (92), sinus rhythm, no ectopy, normal QRS, normal QT and left axis Discharge Plan Discharge Clinical Impression: Bronchitis Patient Disposition: Home Condition: Stable Instructions: Acute Bronchitis (ED) Additional Instructions: Please return to the emergency department if you develop severe and persistent chest pain, difficulty breathing, dizziness, leg swelling or if you are coughing up blood as these can be signs of a medical emergency. Please call your doctor for a follow up appointment to determine the need for further testing. Patient Language: [place] Island[place] Prescriptions: New prednisone 50 mg tablet 50 mg PO DAILY Qty: 6 0RF albuterol sulfate 90 mcg/actuation HFA aerosol inhaler 4 - 6 puff inhalation QID PRN (Reason: shortness of breath or wheezing) Qty: 8.5 0RF No Action amlodipine 5 mg tablet See Rx Instructions .ROUTE .COMPLEX Qty: 90 1RF Dose Instruction: TAKE 1 TABLET BY MOUTH DAILY Rx Instructions: TAKE 1 TABLET BY MOUTH DAILY atorvastatin 10 mg tablet 10 mg PO DAILY Qty: 90 1RF Follow-up/Referrals: Peng Castaneda MD [Primary Care Provider, Family Practice] - 1 Week
[2025-05-15] MEDS: IPRATROPIUM 0.5 MG/ALBUTEROL SULFATE 2.5 MG AMPUL.NEB 3 ML INHALATION (13:42)
[2025-05-15] MEDS: ALBUTEROL SULFATE NEB 2.5 MG/3 ML INH 10 MG INHALATION (14:42)
[2025-05-15] MEDS: IPRATROPIUM BR 0.02% INH SOLN 0.5 MG/2.5 ML VIAL 1 MG INHALATION (14:42)
== END 2025-05-15 16:46 | disposition home or self-care (01) ==
PROVIDERS: Emergency Provider Emergency Medicine; PCP Family Medicine
DX: J40 Bronchitis, not specified as acute or chronic (principal); I10 Essential (primary) hypertension; G47.30 Sleep apnea, unspecified; Z85.72 Personal history of non-Hodgkin lymphomas
CPT/HCPCS: 36415; 71046; 80053; 85025; 93005; 94640; 99284; J7512